=== PATIENT | male | born 1960 | race Caucasian/White ===

== ENCOUNTER → 2017-06-28 | Outpatient (CLI) | payer OTHER ==
--- NOTE | 2017-06-28 09:19 | Diagnostic Imaging Report ---
3 views of the right foot. INDICATION: Area of redness between the fourth and fifth toes on the dorsal aspect of the right foot. FINDINGS: There is no fracture, dislocation or radiopaque foreign body. The joint alignment is satisfactory. IMPRESSION: Unremarkable exam. Dictated by: Dictated on workstation # [id number]
== END ==
LOC: RAD 08:55
PROVIDERS: ATTEND Nurse Practitioner Family
DX: L03.115 Cellulitis of right lower limb (principal)
CPT/HCPCS: 73630

== ENCOUNTER 2017-07-21 08:00 | Outpatient (RCR) | payer OTHER | END 2017-07-21 09:44 | disposition home or self-care (01) | PROVIDERS: ATTEND Family Medicine | DX: M54.40 Lumbago with sciatica, unspecified side (principal) ==

== ENCOUNTER 2019-02-01 19:58 | Emergency (ER) | payer OTHER ==
[~2019-02-01] VITALS: Ht 177.8 cm; Wt 106.6 kg
--- NOTE | 2019-02-01 20:02 | NUR ---
PT PRESENTS WITH LEFT SIDED NUMBNESS FROM THE FACE DOWN TO HIS FOOT. SYMPTOMS STARTED YESTERDAY AROUND NOON AND SUBSIDED BUT SYMPTOMS RETURNED ABOUT 20 MIN SISTER SUPERIOR. STROKE TEAM ACTIVATED BY DR. MARIEE AT 2001.
--- OUTSIDE RECORDS SUMMARY | 2019-02-01 20:05 | XMS REPORT | Continuity of Care Document ---
Author Organization Unknown Address Unknown Allergies There is no data. Medications There is no data. Problems Date Dx Coded Attending Type Code Diagnosis Diagnosed By 05/20/2015 Ot 729.5 05/20/2015 Ot 729.81 05/20/2015 HAFSA RIDDLE MD Ot 719.41 05/20/2015 HAFSA RIDDLE MD Ot 726.10 06/18/2015 HAFSA RIDDLE MD R Ot M25.552 06/19/2015 HAFSA RIDDLE MD R Ot M25.552 06/06/2017 Ot 729.5 PAIN IN LIMB 06/06/2017 Ot 729.81 SWELLING OF LIMB 06/06/2017 HAFSA RIDDLE MD R Ot 719.41 JOINT PAIN-SHLDER 06/06/2017 HAFSA RIDDLE MD Ot 726.10 BURSAE TENDONS DIS SHLDER NOS 06/06/2017 HAFSA RIDDLE MD Ot M25.552 PAIN IN LEFT HIP 06/07/2017 HAFSA RIDDLE MD R Ot M54.40 LUMBAGO WITH SCIATICA, UNSPECIFIED SIDE 06/13/2017 HAFSA RIDDLE MD R Ot M54.40 LUMBAGO WITH SCIATICA, UNSPECIFIED SIDE 07/11/2017 HAFSA RIDDLE MD R Ot M54.40 LUMBAGO WITH SCIATICA, UNSPECIFIED SIDE 07/21/2017 HAFSA RIDDLE MD R Ot M54.40 LUMBAGO WITH SCIATICA, UNSPECIFIED SIDE 07/21/2017 BENJAMIN KUNZ KINDERGARTNER-C Ot L03.115 CELLULITIS OF RIGHT LOWER LIMB 04/10/2018 HAFSA RIDDLE MD R Ot 719.41 JOINT PAIN-SHLDER 04/10/2018 HAFSA RIDDLE MD R Ot 726.10 BURSAE TENDONS DIS SHLDER NOS 04/10/2018 HAFSA RIDDLE MD R Ot M25.552 PAIN IN LEFT HIP 04/10/2018 BENJAMIN KUNZ KINDERGARTNER-John Ot L03.115 CELLULITIS OF RIGHT LOWER LIMB Procedures There is no data. Results There is no data. Encounters ACCT No. Visit Date/Time Discharge Status Pt. Type Provider Facility Loc./Unit Complaint [id number] 07/21/2017 08:00:00 07/21/2017 09:44:00 DIS Outpatient HAFSA RIDDLE MD Via [facility] REHAB LOW BACK PAIN WITH SCIATICA [id number] 06/28/2017 08:55:00 06/28/2017 23:59:59 CLS Outpatient JOAQUINA BENJAMIN MILLER-John [facility] RAD L03.115 [id number] 05/20/2015 10:22:00 05/20/2015 23:59:59 CLS Outpatient HAFSA RIDDLE MD [facility] RAD IGCHITIS [id number] 03/06/2014 09:00:00 03/06/2014 23:59:59 CLS Outpatient [id number] 12/13/2013 13:13:00 12/13/2013 23:59:59 CLS Outpatient HAFSA RIDDLE MD [facility] RAD LT SHOULDER PAIN [id number] 03/27/2012 12:22:00 Document Registration
[2019-02-01 20:26] LABS: FIBRIN DEGRADATION PRODUCTS 0.55 UG/ML (0.00-0.49); INR 0.9 (0.8-1.4); PROTHROMBIN TIME PATIENT 12.6 SEC (12.2-14.7)
[2019-02-01 20:27] LABS: BASOPHILS % (AUTO) 0 % (0-10); EOSINOPHILS # (AUTO) 0.3 10^3/uL (0.0-0.3); EOSINOPHILS % (AUTO) 2 % (0-10); HEMATOCRIT 46 % (40-54); HEMOGLOBIN 15.6 G/DL (13.3-17.7); LYMPHOCYTES # (AUTO) 3.6 X 10^3 (1.0-4.0); LYMPHOCYTES % (AUTO) 32 % (12-44); MEAN CORPUSCULAR HEMOGLOBIN 27 PG (25-34); MEAN CORPUSCULAR HGB CONC 34 G/DL (32-36); MEAN CORPUSCULAR VOLUME 80 FL (80-99); MEAN PLATELET VOLUME 9.7 FL (7.4-10.4); MONOCYTES # (AUTO) 0.9 X 10^3 (0.0-1.0); MONOCYTES % (AUTO) 8 % (0-12); NEUTROPHILS # (AUTO) 6.3 X 10^3 (1.8-7.8); NEUTROPHILS % (AUTO) 57 % (42-75); PLATELET COUNT 314 10^3/uL (130-400); RED CELL DISTRIBUTION WIDTH 15.4 % (10.0-14.5); WHITE BLOOD COUNT 11.1 10^3/uL (4.3-11.0)
--- NOTE | 2019-02-01 20:34 | Diagnostic Imaging Report ---
PROCEDURE: CT head wo r/o stroke. TECHNIQUE: Multiple contiguous axial images were obtained through the brain without the use of intravenous contrast. Auto Exposure Controls were utilized during the CT exam to meet ALARA standards for radiation dose reduction. INDICATION: Complete left-sided paralysis yesterday, which resolved, and has now returned. COMPARISON: None FINDINGS: The ventricles and cortical sulci appear age-appropriate. There is no midline shift or significant mass effect. No acute intracranial hemorrhage is seen. There is no CT evidence of acute territorial ischemia. The calvarium appears intact. Visualized paranasal sinuses are clear. IMPRESSION: 1. No acute intracranial hemorrhage or CT evidence of acute territorial ischemia. Findings discussed with CASSIE MARIEE MD by Dr. Giles, on 02/01/2019 8:29 PM. Dictated by: Dictated on workstation # [id number]
[2019-02-01 20:40] LABS: ALANINE AMINOTRANSFERASE 17 U/L (0-55); ALBUMIN 4.2 GM/DL (3.2-4.5); ALKALINE PHOSPHATASE 97 U/L (40-136); BILIRUBIN,TOTAL 0.2 MG/DL (0.1-1.0); BUN/CREATININE RATIO 20; CALCIUM 9.5 MG/DL (8.5-10.1); CARBON DIOXIDE 21 MMOL/L (21-32); CHLORIDE 107 MMOL/L (98-107); CREATININE SERUM 1.01 MG/DL (0.60-1.30); GFR ESTIMATED > 60; GLUCOSE 114 MG/DL (70-105); POTASSIUM 4.1 MMOL/L (3.6-5.0); SODIUM 139 MMOL/L (135-145); TOTAL PROTEIN 7.1 GM/DL (6.4-8.2)
--- NOTE | 2019-02-01 20:55 | Diagnostic Imaging Report ---
PATIENT HISTORY: Left-sided paralysis and numbness. TECHNIQUE: Frontal view of the chest COMPARISON: None FINDINGS: Lung volumes are normal. No focal consolidation is seen. There is no pleural effusion or pneumothorax. The cardiac silhouette appears normal in size and contour. IMPRESSION: No acute pulmonary abnormalities seen. Dictated by: Dictated on workstation # [id number]
--- NOTE | 2019-02-01 20:58 | ED Neurological Problem ---
General Chief Complaint: Neurological Problems Stated Complaint: L SIDE NUMBNESS Nursing Triage Note: LEFT SIDED NUMBNESS STARTED YESTERDAY AROUND NOON AND COULD NOT CONTROL HIS LEFT ARM OR LEG. SYMPTOMS SUBSIDED AND THE NUMBNESS RETURNED TODAY Nursing Sepsis Screen: No Definite Risk Source: patient Exam Limitations: no limitations History of Present Illness Date Seen by Provider: Feb 01, 2019 Time Seen by Provider: 20:02 Initial Comments Mr. Diaz is a 58-year-old gentleman who presents to the emergency room with complaints of numbness extending from the left face down through the left extremities always down to the left foot. This occurred about 25 minutes prior to arrival but is now gone. He also reports having an episode of numbness and weakness of the left extremities yesterday. He reports having no control of his left arm or leg at that time. This was estimated to last approximately 2 minutes or less. He has had no weakness today. He is relatively healthy other than hyperlipidemia. He reports history of some slight right facial weakness as residual from a baseball injury. NIH stroke score on initial assessment is zero. Allergies and Home Medications Allergies Coded Allergies: No Known Drug Allergies (Unverified , 02/01/19) Patient Home Medication List Home Medication List Reviewed: Yes Review of Systems Review of Systems Constitutional: no symptoms reported Eyes: No Symptoms Reported Ears, Nose, Mouth, Throat: no symptoms reported Respiratory: no symptoms reported Cardiovascular: no symptoms reported Gastrointestinal: no symptoms reported Genitourinary: no symptoms reported Musculoskeletal: no symptoms reported Skin: no symptoms reported Psychiatric/Neurological: See HPI Endocrine: No Symptoms Reported Hematologic/Lymphatic: No Symptoms Reported Past Owvhnnn-Uuvyyc-Znqpfh Hx Past Med/Social Hx: Reviewed and Corrections made Patient Social History Alcohol Use: Denies Use Recreational Drug Use: No Smoking Status: Never a Smoker 2nd Hand Smoke Exposure: No Recent Foreign Travel: No Contact w/Someone Who Travel: No Recent Infectious Disease Expo: No Recent Hopitalizations: No Past Medical History Surgeries: No Respiratory: No Cardiac: Yes High Cholesterol Neurological: Yes (slight right facial weakness due to prior periorbital baseb all injury) Genitourinary: No Gastrointestinal: No Musculoskeletal: No Endocrine: No HEENT: Yes (slight right facial weakness due to prior periorbital baseball injury) Cancer: No Psychosocial: No Integumentary: No Blood Disorders: No Physical Exam Vital Signs Vital Signs - First Documented 02/01/19 19:58 Temp 97.8 Pulse 78 Resp 16 B/P (MAP) 150/108 (122) Pulse Ox 98 O2 Delivery Room Air Capillary Refill : Less Than 3 Seconds Height, Weight, BMI Height: 5'10.00" Weight: 235lbs. oz. 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, no motor/sensory deficits, alert, normal mood/affect, oriented x 3 Crainal Nerves: normal hearing, normal speech, PERRL Coordination/Gait: normal finger to nose (normal heel to jane) Motor/Sensory: no motor deficit, no sensory deficit Skin: normal color, warm/dry Stroke NIH Stroke Scale Assessment Select: Initial 20:02 Level of Consciousness: 0=Alert (0), Level of Consciousness-Questions: 0=Answers both month/age (0), LOC Commands: 0=Performs both tasks (0), Gaze: Normal (0), Visual Hutchins: 0=No visual loss (0), Facial Movement (Facial Paresis): 0=Normal symmetrical mnt (0), Motor Function-Arms Right: 0=No drift (0), Motor Function-Arms Left: 0=No drift (0), Motor Function-Legs Right: 0=No drift (0), Motor Function-Legs Left: 0=No drift (0), Limb Ataxia: 0=Absent (0), Sensory: 0=Normal:no loss (0), Best Language: 0=No aphasia (0), Dysarthria: 0=Normal (0), Extinction & Inattention: 0=No abnormality (0), Total: 0 Progress/Results/Core Measures Results/Orders Lab Results Laboratory Tests Test 02/01/19 20:00 02/01/19 20:37 02/01/19 22:05 Range/Units White Blood Count 11.1 H 4.3-11.0 10^3/uL Red Blood Count 5.83 4.35-5.85 10^6/uL Hemoglobin 15.6 13.3-17.7 G/DL Hematocrit 46 40-54 % Mean Corpuscular Volume 80 80-99 FL Mean Corpuscular Hemoglobin 27 25-34 PG Mean Corpuscular Hemoglobin Concent 34 32-36 G/DL Red Cell Distribution Width 15.4 H 10.0-14.5 % Platelet Count 314 130-400 10^3/uL Mean Platelet Volume 9.7 7.4-10.4 FL Neutrophils (%) (Auto) 57 42-75 % Lymphocytes (%) (Auto) 32 12-44 % Monocytes (%) (Auto) 8 0-12 % Eosinophils (%) (Auto) 2 0-10 % Basophils (%) (Auto) 0 0-10 % Neutrophils # (Auto) 6.3 1.8-7.8 X 10^3 Lymphocytes # (Auto) 3.6 1.0-4.0 X 10^3 Monocytes # (Auto) 0.9 0.0-1.0 X 10^3 Eosinophils # (Auto) 0.3 0.0-0.3 10^3/uL Basophils # (Auto) 0.0 0.0-0.1 10^3/uL Prothrombin Time 12.6 12.2-14.7 SEC INR Comment 0.9 0.8-1.4 Activated Partial Thromboplast Time 28 24-35 SEC D-Dimer 0.55 H 0.00-0.49 UG/ML Sodium Level 139 135-145 MMOL/L Potassium Level 4.1 3.6-5.0 MMOL/L Chloride Level 107 98-107 MMOL/L Carbon Dioxide Level 21 21-32 MMOL/L Anion Gap 11 5-14 MMOL/L Blood Urea Nitrogen 20 H 7-18 MG/DL Creatinine 1.01 0.60-1.30 MG/DL Estimat Glomerular Filtration Rate > 60 BUN/Creatinine Ratio 20 Glucose Level 114 H 70-105 MG/DL Calcium Level 9.5 8.5-10.1 MG/DL Corrected Calcium 9.3 8.5-10.1 MG/DL Total Bilirubin 0.2 0.1-1.0 MG/DL Aspartate Amino Transf (AST/SGOT) 21 5-34 U/L Alanine Aminotransferase (ALT/SGPT) 17 0-55 U/L Alkaline Phosphatase 97 40-136 U/L Troponin I < 0.028 <0.028 NG/ML Total Protein 7.1 6.4-8.2 GM/DL Albumin 4.2 3.2-4.5 GM/DL Glucometer 114 H 70-110 MG/DL Urine Color YELLOW Urine Clarity CLEAR Urine pH 5 5-9 Urine Specific [place] 1.025 H 1.016-1.022 Urine Protein 1+ H NEGATIVE Urine Glucose (UA) NEGATIVE NEGATIVE Urine Ketones NEGATIVE NEGATIVE Urine Nitrite NEGATIVE NEGATIVE Urine Bilirubin NEGATIVE NEGATIVE Urine Urobilinogen NORMAL NORMAL MG/DL Urine Leukocyte Esterase NEGATIVE NEGATIVE Urine RBC (Auto) NEGATIVE NEGATIVE Urine RBC NONE /HPF Urine WBC NONE /HPF Urine Crystals NONE /LPF Urine Bacteria NEGATIVE /HPF Urine Casts NONE /LPF Urine Mucus SMALL H /LPF Urine Culture Indicated NO My Orders Orders - CASSIE MARIEE MD Cbc With Automated Diff (02/01/19 20:12) Protime With Inr (02/01/19 20:12) Partial Thromboplastin Time (02/01/19 20:12) Comprehensive Metabolic Panel (02/01/19 20:12) Fibrin Degradation Products (02/01/19 20:12) Troponin I (02/01/19 20:12) Ua Culture If Indicated (02/01/19 20:12) Chest 1 View, Ap/Pa Only (02/01/19 20:12) Ekg Tracing (02/01/19 20:12) Accucheck Stat ONCE (02/01/19 20:12) Ed Iv/Invasive Line Start (02/01/19 20:12) Ed Iv/Invasive Line Start (02/01/19 20:12) Vital Signs Stroke Patient Q15M (02/01/19 20:12) Ct Head Wo-R/O Stroke (02/01/19 20:12) O2 (02/01/19 20:12) Intake & Output 06,14,22 (02/01/19 20:12) Monitor-Rhythm Ecg Trace Only (02/01/19 20:12) Dysphagia Screening Tool (02/01/19 20:12) Ct Angio Head/Neck (02/01/19 20:49) Iohexol Injection (Omnipaque 350 Mg/Ml 1 (02/01/19 21:15) Received Contrast (Hold Metformin- Contr (02/01/19 21:15) Aspirin Tablet (Aspirin Tablet) (02/01/19 22:45) Medications Given in ED Current Medications Medications Dose Ordered Sig/David Route Start Time Stop Time Status Last Admin Dose Admin Aspirin 325 mg ONCE ONCE PO 02/01/19 22:45 02/01/19 22:46 DC 02/01/19 22:28 325 MG Iohexol 75 ml ONCE ONCE IV 02/01/19 21:15 02/01/19 21:16 DC 02/01/19 21:09 75 ML Vital Signs/I&O 02/01/19 02/01/19 02/01/19 19:58 21:55 23:00 Temp 97.8 Pulse 78 67 70 Resp 16 16 16 B/P (MAP) 150/108 (122) 118/85 122/75 (91) Pulse Ox 98 95 97 O2 Delivery Room Air Blood Pressure Mean: 122 FSBG Bedside Testing Finger Stick Blood Glucose: 114 Progress Progress Note : Progress Note Stroke activation was paged. Workup was unremarkable. Case was discussed with Dr. Trujillo, stroke neurologist at [facility] at 22:26. He advised further workup as an outpatient and aspirin therapy. He advised outpatient workup to include echocardiogram and diabetes screening. Patient had one brief episode of numbness of the left face and tongue that lasted approximately 2 minutes or less. He was free of symptoms at the time of discharge. A repeat NIH score prior to discharge was zero. Return precautions were discussed. Initial ECG Impression Date: Feb 01, 2019 Initial ECG Impression Time: 20:11 Initial ECG Rate: 71 Initial ECG Rhythm: Normal Sinus Initial ECG Intervals: Normal Initial ECG Impression: Normal Comment Normal sinus rhythm with no ST elevation or depression. No abnormal intervals or axis deviation. Diagnostic Imaging Diagonstic Imaging: CT Plain Films/CT/US/NM/MRI: head Comments CT head viewed by me and report reviewed. Discussed with radiologist. See report below: NAME: YADY IDAZ [facility] REC#: [id number] PT STATUS: REG ER : 1960 PHYSICIAN: CASSIE MARIEE MD ADMIT DATE: 02/01/19/ER Draft Date of Exam:02/01/19 CT HEAD WO-R/O STROKE PROCEDURE: CT head wo r/o stroke. TECHNIQUE: Multiple contiguous axial images were obtained through the brain without the use of intravenous contrast. Auto Exposure Controls were utilized during the CT exam to meet ALARA standards for radiation dose reduction. INDICATION: Complete left-sided paralysis yesterday, which resolved, and has now returned. COMPARISON: None FINDINGS: The ventricles and cortical sulci appear age-appropriate. There is no midline shift or significant mass effect. No acute intracranial hemorrhage is seen. There is no CT evidence of acute territorial ischemia. The calvarium appears intact. Visualized paranasal sinuses are clear. IMPRESSION: 1. No acute intracranial hemorrhage or CT evidence of acute territorial ischemia. Findings discussed with CASSIE MARIEE MD by Dr. Mcnulty, on 02/01/2019 8:29 PM. Dictated on workstation # [id number] Dict: 02/01/192025 Trans: 02/01/192033 NAVDEEP [id number] Interpreted by: MARIEL MCNULTY MD Reviewed: Reviewed by Me, Discussed w/Radiologist Diagonstic Imaging: Xray Plain Films/CT/US/NM/MRI: chest Comments NAME: YADY DIAZ MED REC#: [id number] PT STATUS: REG ER : 1960 PHYSICIAN: CASSIE MARIEE MD ADMIT DATE: 02/01/19/ER Draft Date of Exam:02/01/19 CHEST 1 VIEW, AP/PA ONLY PATIENT HISTORY: Left-sided paralysis and numbness. TECHNIQUE: Frontal view of the chest COMPARISON: None FINDINGS: Lung volumes are normal. No focal consolidation is seen. There is no pleural effusion or pneumothorax. The cardiac silhouette appears normal in size and contour. IMPRESSION: No acute pulmonary abnormalities seen. Dictated on workstation # [id number] Dict: 02/01/192043 Trans: 02/01/192053 NAVDEEP [id number] Interpreted by: MARIEL MCNULTY MD Diagonstic Imaging: CT Plain Films/CT/US/NM/MRI: other (angiogram head and neck) Comments NAME: YADY DIAZ [facility] REC#: [id number] PT STATUS: REG ER : 1960 PHYSICIAN: CASSIE MARIEE MD ADMIT DATE: 02/01/19/ER Signed Date of Exam: 02/01/19 CT ANGIO HEAD/NECK PROCEDURE: CT angiography of the head and CT angiography of the neck with and without contrast. TECHNIQUE: Contiguous noncontrast images were obtained from the skull base through the vertex. After intravenous contrast administration, helical CT angiography of the neck was performed. Source data was reformatted into multiple MIP projections. Delayed post contrast acquisition was also obtained. Auto Exposure Controls were utilized during the CT exam to meet ALARA standards for radiation dose reduction. INDICATION: Stroke, left-sided paralysis which resolved yesterday. Left-sided numbness today. COMPARISON: None. FINDINGS: There is motion artifact present. The bolus timing is suboptimal. No stenosis or occlusion is seen of the bilateral internal and common carotid arteries. Minimal atherosclerosis is seen. The vertebral arteries are codominant. No significant stenosis or occlusion is seen. The anterior cerebral arteries appear patent. The anterior communicating artery is seen. The middle cerebral arteries are patent. The posterior communicating arteries are not well seen. The posterior cerebral arteries are seen. The superior cerebellar arteries are faintly visible. The basilar artery appears normal. No acute intracranial hemorrhage is seen. No enhancing masses are seen. Enhancement appears symmetric, bilaterally. There is no midline shift. No CT evidence of acute territorial ischemia is seen. There are degenerative changes in the cervical spine, most pronounced at C6-7. No acute fracture is seen. There is facet arthropathy in the cervical spine, particularly on the right. The soft tissues of the neck demonstrate no acute abnormality. IMPRESSION: 1. No stenosis, occlusion or aneurysm is seen in the arteries of the head and neck. 2. No enhancing masses or CT evidence of acute territorial ischemia. Dictated by: Dictated on workstation # [id number] Dict: 02/01/192129 Trans: 02/01/192208 Interpreted by: MARIEL MCNULTY MD Electronically signed by: MARIEL MCNULTY MD 02/01/192208 Departure Impression Primary Impression: Left-sided weakness Additional Impression: Left sided numbness Disposition: 01 HOME, SELF-CARE Condition: Improved Departure-Patient Inst. Decision time for Depature: 22:40 Referrals: HAFSA RIDDLE MD (PCP/Family) Primary Care Physician Patient Instructions: Transient Ischemic Attack (DC) Add. Discharge Instructions: The exact cause of your symptoms is uncertain but may be related to TIA (transient ischemic attack). Please immediately return to the emergency room or call 911 if you have recurrent strokelike symptoms which might include numbness, weakness, changes in vision, difficulty with speech or thought, confusion, etc. Take aspirin 81 mg daily until otherwise advised. Drink plenty of clear liquids and stay well-hydrated. Follow-up with your primary care provider soon as possible. Dr. Trujillo, stroke neurologist at , has recommended you continue evaluation with your primary care provider to include echocardiogram, diabetes screening, and possibly more aggressive treatment of your cholesterol. Return to care if you have any other problems or concerns. All discharge instructions reviewed with patient and/or family. Voiced understanding. Copy Copies To 1: HAFSA RIDDLE MD, JOSHUA T MD Feb 01, 2019 20:58
[2019-02-01] MEDS ORDERED: IOHEXOL 350 MG/ML 100 ML (OMNIPAQUE 350) VIAL IV ONE (21:15)
[2019-02-01] MEDS ORDERED: HOLD METFORMIN - RECEIVED CONTRAST 20 ML VIAL IV SCH (21:15)
--- NOTE | 2019-02-01 21:39 | Diagnostic Imaging Report ---
PROCEDURE: CT angiography of the head and CT angiography of the neck with and without contrast. TECHNIQUE: Contiguous noncontrast images were obtained from the skull base through the vertex. After intravenous contrast administration, helical CT angiography of the neck was performed. Source data was reformatted into multiple MIP projections. Delayed post contrast acquisition was also obtained. Auto Exposure Controls were utilized during the CT exam to meet ALARA standards for radiation dose reduction. INDICATION: Stroke, left-sided paralysis which resolved yesterday. Left-sided numbness today. COMPARISON: None. FINDINGS: There is motion artifact present. The bolus timing is suboptimal. No stenosis or occlusion is seen of the bilateral internal and common carotid arteries. Minimal atherosclerosis is seen. The vertebral arteries are codominant. No significant stenosis or occlusion is seen. The anterior cerebral arteries appear patent. The anterior communicating artery is seen. The middle cerebral arteries are patent. The posterior communicating arteries are not well seen. The posterior cerebral arteries are seen. The superior cerebellar arteries are faintly visible. The basilar artery appears normal. No acute intracranial hemorrhage is seen. No enhancing masses are seen. Enhancement appears symmetric, bilaterally. There is no midline shift. No CT evidence of acute territorial ischemia is seen. There are degenerative changes in the cervical spine, most pronounced at C6-7. No acute fracture is seen. There is facet arthropathy in the cervical spine, particularly on the right. The soft tissues of the neck demonstrate no acute abnormality. IMPRESSION: 1. No stenosis, occlusion or aneurysm is seen in the arteries of the head and neck. 2. No enhancing masses or CT evidence of acute territorial ischemia. Dictated by: Dictated on workstation # [id number]
[2019-02-01 21:55] VITALS: BP 118/85
[2019-02-01 22:15] LABS: BILIRUBIN,URINE NEGATIVE (NEGATIVE); CLARITY,URINE CLEAR; COLOR,URINE YELLOW; GLUCOSE, URINE (UA) NEGATIVE (NEGATIVE); KETONES,URINE NEGATIVE (NEGATIVE); LEUKOCYTE ESTERASE ,URINE NEGATIVE (NEGATIVE); NITRITE,URINE NEGATIVE (NEGATIVE); PH,URINE 5 (5-9); PROTEIN,URINE 1+ (NEGATIVE); UROBILINOGEN,URINE NORMAL (NORMAL)
[2019-02-01 22:20] LABS: BACTERIA,URINE NEGATIVE /HPF
[2019-02-01] MEDS ORDERED: ASPIRIN 325 MG (5 GR) TABLET PO ONE (22:45)
[2019-02-01 23:00] VITALS: BP 122/75
== END 2019-02-01 23:00 | disposition home or self-care (01) ==
LOC: EDUNIT# 19:58 → ER 19:59
DX: R20.0 Anesthesia of skin (principal); R53.1 Weakness; E78.00 Pure hypercholesterolemia, unspecified
CPT/HCPCS: 36415; 70450; 70496; 70498; 71045; 80053; 81000; 82962; 84484; 85025; 85379; 85610; 85730; 93005; 93041

== ENCOUNTER 2019-03-16 08:00 | Outpatient (RCR) | payer OTHER | END 2019-06-04 | disposition home or self-care (01) | PROVIDERS: ATTEND Family Medicine | DX: M54.5 Low back pain (principal); M54.2 Cervicalgia; Z86.73 Personal history of transient ischemic attack (TIA), and cerebral infarction without residual deficits ==

== ENCOUNTER 2021-01-23 07:43 | Emergency (ER) | payer OTHER ==
[~2021-01-23] VITALS: Ht 177 cm; Wt 100.0 kg
[2021-01-23 07:50] VITALS: BP 146/91
--- NOTE | 2021-01-23 08:45 | Diagnostic Imaging Report ---
INDICATION: Wrist pain COMPARISON: None available TECHNIQUE: 3 radiographs of the left wrist dated 01/23/2021 FINDINGS: No acute fracture or dislocation. No destructive osseous process. Carpal alignment is well-maintained. Scapholunate interval is within normal limits. Scattered osseous degenerative changes, greatest involving the 1st CMC joint where they are [id number] in . Mild soft tissue swelling about the wrist. IMPRESSION: No acute osseous abnormality with mild scattered osseous degenerative changes. Mild soft tissue swelling about the wrist. Dictated by: Dictated on workstation # [id number]
--- NOTE | 2021-01-23 09:15 | ED Upper Extremity ---
General Chief Complaint: Upper Extremity Stated Complaint: LEFT WRIST PAIN Nursing Triage Note: PT AMB TO ROOM 8 PT CO OF L WRIST PAIN FROM FALL LAST TUESDAY, PT CO OF PAIN. PT STATES IS DIABETIC AND HAS NOT HAD ANY MEDS FOR 2 YEARS. PT STATES HAS RECENT RENTINAL BLEEDING AND IS CONCERNED THAT MIGHT BE FROM ELEVATED BS Nursing Sepsis Screen: No Definite Risk Source: patient Exam Limitations: no limitations History of Present Illness Date Seen by Provider: Jan 23, 2021 Time Seen by Provider: 08:10 Initial Comments This 60-year-old gentleman presents to the emergency room with 3 complaints. His primary complaint is pain in the left wrist after falling and rolling down a hill on January 17. He has pain with range of motion and tenderness on the ulnar aspect of the wrist. His second complaint is diabetes for which he has not had primary care management in quite some time. He is concerned his blood sugar may be high. He also reports retinal hemorrhages that he thinks may be related to uncontrolled diabetes. Fingerstick blood sugar was obtained and was 115. His third complaint is need for primary care services and maintenance blood work. This is being deferred to primary care provider. Allergies and Home Medications Allergies Coded Allergies: No Known Drug Allergies (Unverified , 02/01/19) Patient Home Medication List Home Medication List Reviewed: Yes Review of Systems Constitutional: no symptoms reported EENTM: see HPI Respiratory: no symptoms reported Cardiovascular: no symptoms reported Gastrointestinal: no symptoms reported Genitourinary: no symptoms reported Musculoskeletal: see HPI Skin: no symptoms reported Psychiatric/Neurological: No Symptoms Reported Past Acglsfk-Rhlzhh-Ichpja Hx Past Med/Social Hx: Reviewed Nursing Past Med/Soc Hx Patient Social History Alcohol Use: Denies Use Smoking Status: Never a Smoker 2nd Hand Smoke Exposure: No Recent Infectious Disease Expo: No Recent Hopitalizations: No Past Medical History Surgeries: No Respiratory: No Cardiac: Yes High Cholesterol Neurological: Yes (slight right facial weakness due to prior periorbital baseball injury) Genitourinary: No Gastrointestinal: No Musculoskeletal: No Endocrine: Yes Diabetes, Non-Insulin dep HEENT: Yes (slight right facial weakness due to prior periorbital baseball injury) Eye Injury (Retinal hemorrhage) Cancer: No Psychosocial: No Integumentary: No Blood Disorders: No Physical Exam Vital Signs Vital Signs - First Documented 01/23/21 07:50 Temp 35.8 Pulse 74 Resp 18 B/P (MAP) 146/91 (109) Pulse Ox 96 Capillary Refill : Less Than 3 Seconds Height, Weight, BMI Height: 5'10.00" Weight: 235lbs. oz. 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 Patient was fitted with an AlumaFm Colles' splint which provided him significant comfort. Diagnostic Imaging Diagonstic Imaging: Xray Plain Films/CT/US/NM/MRI: other (Wrist x-ray) Comments Left wrist x-ray viewed by me and report reviewed. Report and images reviewed with Dr. Zaidi. See report below: NAME: YADY DIAZ [facility] REC#: [id number] PT STATUS: DEP ER : 1960 PHYSICIAN: CASSIE MARIEE MD ADMIT DATE: 01/23/21/ER Signed Date of Exam:01/23/21 WRIST, LEFT, 3 VIEWS OR MORE INDICATION: Wrist pain COMPARISON: None available TECHNIQUE: 3 radiographs of the left wrist dated 01/23/2021 FINDINGS: No acute fracture or dislocation. No destructive osseous process. Carpal alignment is well-maintained. Scapholunate interval is within normal limits. Scattered osseous degenerative changes, greatest involving the 1st CMC joint where they are [id number] in . Mild soft tissue swelling about the wrist. IMPRESSION: No acute osseous abnormality with mild scattered osseous degenerative changes. Mild soft tissue swelling about the wrist. Dictated by: Dictated on workstation # [id number] Dict: 01/23/2139 Trans: 01/23/211652 [facility] [id number] Interpreted by: DEEPTI ARROYO MD Electronically signed by: DEEPTI ARROYO MD 01/23/211652 Departure Impression Primary Impression: Left wrist injury Qualified Codes: S69.92XA - Unspecified injury of left wrist, hand and finger(s), initial encounter Disposition: HOME, SELF-CARE Condition: Improved Departure-Patient Inst. Decision time for Depature: 09:14 Referrals: HUGO ALVAREZ MD [facility]/NATI OROZCO MD, DANIEL J MD NO,LOCAL PHYSICIAN (PCP) Primary Care Physician IVÁN FLOWER CHAD C MD Patient Instructions: Common Wrist Injuries (DC) Add. Discharge Instructions: No fractures were seen on your x-ray. You may have a deep bruise or a sprain. Use your splint as needed for comfort. Gradually increase level of activity as tolerated. For pain you may take ibuprofen up to 600 mg every 6 hours as needed and/or Tylenol (acetaminophen) up to 1000 mg every 6 hours as needed. Establish with a primary care provider as soon as possible to manage your preventative care and any chronic conditions you have. Below is a list of local providers. Call with questions or concerns. Return to the ER with worsening symptoms. All discharge instructions reviewed with patient and/or family. Voiced understanding. Work/School Note: Work Release Form Date Seen in the Emergency Department: Jan 23, 2021 Return to Work: Jan 26, 2021 Other Restrictions Listed Below: May need left wrist splint. Increase activity as pain allows. CASSIE MARIEE MD Jan 23, 2021 09:15
== END 2021-01-23 09:28 | disposition home or self-care (01) ==
LOC: EDUNIT# 07:43 → ER 07:48
DX: S69.92XA Unspecified injury of left wrist, hand and finger(s), initial encounter (principal); E11.9 Type 2 diabetes mellitus without complications; X50.0XXA Overexertion from strenuous movement or load, initial encounter
CPT/HCPCS: 73110; 82947

== ENCOUNTER → 2021-02-10 | Outpatient (CLI) | payer OTHER ==
[2021-02-10 07:37] LABS: HEMATOCRIT 49 % (40-54); HEMOGLOBIN 15.7 g/dL (13.3-17.7); MEAN CORPUSCULAR HEMOGLOBIN 26 pg (25-34); MEAN CORPUSCULAR HGB CONC 32 g/dL (32-36); MEAN CORPUSCULAR VOLUME 81 fL (80-99); MEAN PLATELET VOLUME 9.2 fL (9.0-12.2); PLATELET COUNT 326 10^3/uL (130-400); WHITE BLOOD COUNT 10.5 10^3/uL (4.3-11.0)
[2021-02-10 07:50] LABS: ALBUMIN 4.2 GM/DL (3.2-4.5); CHLORIDE 108 MMOL/L (98-107); POTASSIUM 4.1 MMOL/L (3.6-5.0); SODIUM 140 MMOL/L (135-145)
[2021-02-10 07:52] LABS: CALCIUM 9.4 MG/DL (8.5-10.1)
[2021-02-10 07:53] LABS: GLUCOSE 125 MG/DL (70-105); TOTAL PROTEIN 7.2 GM/DL (6.4-8.2)
[2021-02-10 07:54] LABS: CARBON DIOXIDE 21 MMOL/L (21-32)
[2021-02-10 07:55] LABS: BILIRUBIN,TOTAL 0.6 MG/DL (0.1-1.0)
[2021-02-10 07:56] LABS: ALKALINE PHOSPHATASE 94 U/L (40-136)
[2021-02-10 07:57] LABS: CREATININE SERUM 0.97 MG/DL (0.60-1.30); GFR ESTIMATED > 60
[2021-02-10 07:58] LABS: BUN/CREATININE RATIO 18
[2021-02-10 07:59] LABS: ALANINE AMINOTRANSFERASE 13 U/L (0-55)
[2021-02-10 08:27] LABS: ERYTHROCYTE SEDIMENTATION RATE 5 MM/HR (0-30)
== END ==
LOC: LAB 07:16
PROVIDERS: ATTEND Family Medicine
DX: Z01.89 Encounter for other specified special examinations (principal)
CPT/HCPCS: 36415; 80053; 85027; 85652; 86038; 86039; 86141; 86431

== ENCOUNTER → 2021-02-18 | Outpatient (CLI) | payer OTHER | LOC: LAB 09:24 | PROVIDERS: ATTEND Family Medicine | DX: E11.9 Type 2 diabetes mellitus without complications (principal) | CPT/HCPCS: 36415; 83036 ==

== ENCOUNTER → 2021-05-04 | Outpatient (CLI) | payer OTHER ==
[2021-05-04 08:21] LABS: BASOPHILS % (AUTO) 1 % (0-10); EOSINOPHILS # (AUTO) 0.2 10^3/uL (0.0-0.3); EOSINOPHILS % (AUTO) 2 % (0-10); HEMATOCRIT 48 % (40-54); HEMOGLOBIN 15.5 g/dL (13.3-17.7); LYMPHOCYTES # (AUTO) 2.2 10^3/uL (1.0-4.0); LYMPHOCYTES % (AUTO) 25 % (12-44); MEAN CORPUSCULAR HEMOGLOBIN 27 pg (25-34); MEAN CORPUSCULAR HGB CONC 33 g/dL (32-36); MEAN CORPUSCULAR VOLUME 82 fL (80-99); MEAN PLATELET VOLUME 9.6 fL (9.0-12.2); MONOCYTES # (AUTO) 0.7 10^3/uL (0.0-1.0); MONOCYTES % (AUTO) 8 % (0-12); NEUTROPHILS # (AUTO) 5.6 10^3/uL (1.8-7.8); NEUTROPHILS % (AUTO) 64 % (42-75); PLATELET COUNT 270 10^3/uL (130-400); WHITE BLOOD COUNT 8.8 10^3/uL (4.3-11.0)
[2021-05-04 08:52] LABS: CREATININE SERUM 0.91 MG/DL (0.60-1.30)
[2021-05-04 08:53] LABS: ERYTHROCYTE SEDIMENTATION RATE 3 MM/HR (0-30)
== END ==
LOC: LAB 07:45
PROVIDERS: ATTEND Internal Medicine Rheumatology
DX: M06.4 Inflammatory polyarthropathy (principal)
CPT/HCPCS: 36415; 82565; 85025; 85652; 86038; 86039; 86141; 86160; 86200; 86225; 86235; 86431

== ENCOUNTER → 2021-07-06 | Outpatient (CLI) | payer OTHER | LOC: LAB 14:55 | PROVIDERS: ATTEND Internal Medicine Rheumatology | DX: M06.4 Inflammatory polyarthropathy (principal); Z79.52 Long term (current) use of systemic steroids | CPT/HCPCS: 36415; 85652; 86141 ==

== ENCOUNTER → 2021-09-04 | Outpatient (CLI) | payer OTHER | LOC: LAB 08:39 | PROVIDERS: ATTEND Internal Medicine Rheumatology | DX: M06.4 Inflammatory polyarthropathy (principal); Z79.52 Long term (current) use of systemic steroids | CPT/HCPCS: 36415; 85652; 86141 ==

== ENCOUNTER → 2021-12-08 | Outpatient (CLI) | payer OTHER | LOC: LAB 07:19 | PROVIDERS: ATTEND Family Medicine | DX: R97.20 Elevated prostate specific antigen [PSA] (principal) | CPT/HCPCS: 36415; 84153 ==

== ENCOUNTER → 2021-12-08 | Outpatient (CLI) | payer OTHER | LOC: LAB 07:21 | PROVIDERS: ATTEND Internal Medicine Rheumatology | DX: M06.4 Inflammatory polyarthropathy (principal); Z79.52 Long term (current) use of systemic steroids | CPT/HCPCS: 36415; 85652; 86141 ==

== ENCOUNTER → 2022-03-05 | Outpatient (CLI) | payer OTHER | LOC: LAB 07:31 | PROVIDERS: ATTEND Internal Medicine Rheumatology | DX: M06.4 Inflammatory polyarthropathy (principal) | CPT/HCPCS: 36415; 85652; 86141 ==

== ENCOUNTER → 2022-09-29 | Outpatient (CLI) | payer OTHER ==
--- NOTE | 2022-09-29 09:48 | Diagnostic Imaging Report ---
INDICATION: Elbow popped yesterday. Unable to straighten. Pain. EXAMINATION: Right elbow 09/29/2022. FINDINGS: 3 views of the elbow. There is a large loose body posterior elbow along the olecranon fossa. This measures 2.6 cm in greatest dimension with adjacent smaller loose body suspected. Diffuse degenerative changes with spurring seen within the proximal ulna and radius. There are no acute fractures or dislocations. There is no significant joint effusion. IMPRESSION: 1. Loose bodies within the olecranon fossa. Other osteoarthritic changes as above with no acute osseous abnormality. Dictated by: Dictated on workstation # [id number]
== END ==
LOC: RAD 09:30
PROVIDERS: ATTEND Family Medicine
DX: M19.041 Primary osteoarthritis, right hand (principal)
CPT/HCPCS: 73080

== ENCOUNTER → 2023-06-06 | Outpatient (CLI) | payer OTHER ==
[~2023-06-06] MED LIST: CATHETER FLUSH 10 ML SYR IVP PRN; REGADENOSON 0.4 MG/5 ML SYR IV ONE
[2023-06-06 09:30] VITALS: BP 130/77
--- NOTE | 2023-06-06 16:29 | Cardiology Stress Test Report ---
Stress Test Report Date of Procedure/Referring: Date of Procedure: Jun 06, 2023 PCP Levar Olivo DO Admitting Physician Admitting Physician: Attending Physician: Aubrey Rai MD Baseline Heart Rate: 59 Baseline Blood Pressure: Blood Pressure Systolic: 130 Blood Pressure Diastolic: 77 Baseline Vitals Vital Signs Date Time Temp Pulse Resp B/P (MAP) Pulse Ox O2 Delivery O2 Flow Rate FiO2 06/06/23 09:30 59 130/77 (94) Baseline EKG: Baseline EKG: NSR Summary After explaining the procedure to the patient, he signed a consent and then brought to the stress nuclear laboratory. Patient received 0.4 mg Lexiscan for stress test, ECG, heart rate and blood pressure were monitored continuously. Resting and stress dose of radio tracer were injected, imaging was acquired and reviewed in short axis, horizontal long axis and vertical long axis views. TID: 1.04 SSS: 1 SDS: 1 EF: 53 Patient tolerated Lexiscan well Patchy uptake with poor quality SPECT images, overall no significant ischemia or infarction noted Normal left ventricular size, ejection fraction 53% Copy Copies To 1: LEVAR OLIVO BASHAR J MD Jun 06, 2023 16:29
== END ==
LOC: CARD 08:45
PROVIDERS: ATTEND Internal Medicine Cardiovascular Disease
DX: I25.10 Atherosclerotic heart disease of native coronary artery without angina pectoris (principal); I10 Essential (primary) hypertension
CPT/HCPCS: 78452; 93017; A9502

== ENCOUNTER 2023-06-21 07:34 | Observation (INO) | payer OTHER ==
[~2023-06-21] VITALS: Ht 177.8 cm; Wt 93.3 kg
--- NOTE | 2023-06-21 08:06 | ED General ---
General Chief Complaint: Lower Extremity Stated Complaint: LEG PAIN Nursing Triage Note: PT STATES HE WAS SENT OVER BY DR RAI FOR DECREASED BLOOD FLOW TO HIS RIGHT LEG. STATES DONTE IS TO CALL AT 8AM. STATES HE HAS HAD THIS PROBLEM FOR 8 MONTHS BUT IS HAVING TROUBLE WALKING WHICH IS WHAT BROUGHT HIM INTODAY. Source of Information: Patient, Old Records Exam Limitations: No Limitations History of Present Illness Date Seen by Provider: Jun 21, 2023 Time Seen by Provider: 07:52 Initial Comments This is 63-year-old gentleman presents to the emergency room with exacerbation of right lower extremity claudication and cramping with exertion. He has a known femoral stenosis by ultrasound and YAKELIN testing. Ultrasound was obtained May 09. Stenting was determined necessary but has been delayed due to insurance denial. Patient has been having symptoms for 8 months but reports a severe worsening this morning. He was directed to the emergency room by the cardiology office. He is noted to be anxious and hypertensive during my assessment. He is also noted to have irregular heart rhythm during assessment. He is presently taking Plavix and aspirin. Allergies and Home Medications Allergies Coded Allergies: No Known Drug Allergies (Unverified , 02/01/19) Patient Home Medication List Home Medication List Reviewed: Yes Aspirin (Aspirin EC) 81 Mg Tablet.dr, 81 MG PO DAILY Prescribed by: ABI RAI on 06/23/23832 Atorvastatin Calcium (Atorvastatin Calcium) 20 Mg Tablet, 20 MG PO DAILY, (Reported) Entered as Reported by: FERMIN SIMMS on 06/21/231446 Last Action: Reviewed Clopidogrel Bisulfate (Clopidogrel) 75 Mg Tablet, 75 MG PO DAILY, (Reported) Entered as Reported by: FERMIN SIMMS on 06/21/231446 Last Action: Reviewed Losartan Potassium (Losartan Potassium) 25 Mg Tablet, 25 MG PO DAILY Prescribed by: ABI RAI on 06/23/23832 Rivaroxaban (Xarelto Tablet) 2.5 Mg Tablet, 2.5 MG PO BID Prescribed by: ABI RAI on 06/23/23832 Review of Systems Review of Systems Constitutional: no symptoms reported EENTM: no symptoms reported Respiratory: no symptoms reported Cardiovascular: see HPI Gastrointestinal: no symptoms reported Genitourinary: no symptoms reported Musculoskeletal: no symptoms reported Skin: no symptoms reported Psychiatric/Neurological: No Symptoms Reported Hematologic/Lymphatic: No Symptoms Reported Immunological/Allergic: no symptoms reported Past Ikorane-Tsakpe-Znunkz Hx Patient Social History Tobacco Use?: No Substance use?: No Alcohol Use?: Yes Alcohol Frequency: Once in a while Past Medical History Surgeries: Yes Orthopedic Respiratory: No Cardiac: Yes High Cholesterol, Peripheral Vascular Neurological: Yes (slight right facial weakness due to prior periorbital baseball injury) Genitourinary: No Gastrointestinal: No Musculoskeletal: No Endocrine: Yes Diabetes, Non-Insulin dep HEENT: Yes (slight right facial weakness due to prior periorbital baseball injury) Eye Injury Cancer: No Psychosocial: No Integumentary: No Blood Disorders: No Physical Exam Vital Signs Vital Signs - First Documented 06/21/23 07:45 Temp 36.6 Pulse 86 Resp 16 B/P (MAP) 209/102 (137) Pulse Ox 97 O2 Delivery Room Air Capillary Refill : Less Than 3 Seconds Height, Weight, BMI Height: 5'10.00" Weight: 235lbs. oz. 106.813311za; 31.00 BMI Method:Stated General Appearance: No Apparent Distress, WD/WN HEENT: Normal ENT Inspection Neck: Normal Inspection Respiratory: Lungs Clear, Normal Breath Sounds, No Accessory Muscle Use Cardiovascular: Regular Rate, Rhythm, No Edema, No Murmur, Other (Absence of palpable pulses in the right foot. Sensation, movement of the toes, and capillary refill of less than 5 seconds intact.) Extremity: Normal Inspection, Other (As above) Neurologic/Psychiatric: Alert, Oriented x3, No Motor/Sensory Deficits, Normal Mood/Affect Skin: Normal Color, Warm/Dry Progress/Results/Core Measures Suspected Sepsis SIRS Temperature: Pulse: 86 Respiratory Rate: 16 Laboratory Tests 06/21/23 08:20: White Blood Count 10.7 Blood Pressure 209 /102 Mean: 137 Laboratory Tests 06/21/23 08:20: Creatinine 0.96, Platelet Count 337 Results/Orders Lab Results Laboratory Tests Test 06/21/23 08:20 Range/Units White Blood Count 10.7 4.3-11.0 10^3/uL Red Blood Count 5.91 H 4.30-5.52 10^6/uL Hemoglobin 16.2 13.3-17.7 g/dL Hematocrit 49 40-54 % Mean Corpuscular Volume 83 80-99 fL Mean Corpuscular Hemoglobin 27 25-34 pg Mean Corpuscular Hemoglobin Concent 33 32-36 g/dL Red Cell Distribution Width 14.7 H 10.0-14.5 % Platelet Count 337 130-400 10^3/uL Mean Platelet Volume 9.6 9.0-12.2 fL Immature Granulocyte % (Auto) 0 % Neutrophils (%) (Auto) 63 42-75 % Lymphocytes (%) (Auto) 25 12-44 % Monocytes (%) (Auto) 10 0-12 % Eosinophils (%) (Auto) 1 0-10 % Basophils (%) (Auto) 0 0-10 % Neutrophils # (Auto) 6.7 1.8-7.8 10^3/uL Lymphocytes # (Auto) 2.7 1.0-4.0 10^3/uL Monocytes # (Auto) 1.1 H 0.0-1.0 10^3/uL Eosinophils # (Auto) 0.1 0.0-0.3 10^3/uL Basophils # (Auto) 0.0 0.0-0.1 10^3/uL Immature Granulocyte # (Auto) 0.0 0.0-0.1 10^3/uL Sodium Level 139 135-145 MMOL/L Potassium Level 3.5 L 3.6-5.0 MMOL/L Chloride Level 105 98-107 MMOL/L Carbon Dioxide Level 24 21-32 MMOL/L Anion Gap 10 5-14 MMOL/L Blood Urea Nitrogen 14 7-18 MG/DL Creatinine 0.96 0.60-1.30 MG/DL Estimat Glomerular Filtration Rate 89 BUN/Creatinine Ratio 15 Glucose Level 118 H 70-105 MG/DL Calcium Level 9.1 8.5-10.1 MG/DL Magnesium Level 2.0 1.6-2.4 MG/DL My Orders Orders - CASSIE MARIEE MD Ekg Tracing (06/21/23 08:05) Monitor-Rhythm Ecg Trace Only (06/21/23 08:05) Us Right Low Ext [id number] (06/21/23 08:08) Us Venous Lower Ext Rt (06/21/23 08:08) Ed Iv/Invasive Line Start (06/21/23 08:10) Ekg Tracing (06/21/23 08:10) Basic Metabolic Panel (06/21/23 08:11) Cbc And Automated Diff (06/21/23 08:11) Magnesium (06/21/23 08:11) Thyroid Stimulating Hormone (06/21/23 08:11) Free T4 (Free Thyroxine) (06/21/23 08:11) Aspirin Chewable Tablet (Aspirin Chewabl (06/21/23 09:00) Enoxaparin Injection (Enoxaparin Injecti (06/21/23 09:00) Vital Signs/I&O 06/21/23 07:45 Temp 36.6 Pulse 86 Resp 16 B/P (MAP) 209/102 (137) Pulse Ox 97 O2 Delivery Room Air Capillary Refill : Less Than 3 Seconds Blood Pressure Mean: 137 Progress Note : Time: 08:57 Progress Note Patient was interviewed and examined. Chart was reviewed including prior ultrasound reports. EKGs were obtained to evaluate irregular rhythm. He appears to be having frequent preventricular complexes. Labs were obtained and reviewed by me. By my interpretation there are no significant abnormalities. CBC was unremarkable. Potassium was scantly low at 3.5. Glucose was scantly elevated at 118. Thyroid studies are pending at this time. Dr. Rai, mobile sales expert, was contacted and presented to the emergency room. He observed ultrasound being obtained. Patient has a critical limb ischemia with no palpable pulses in the right lower extremity by my examination. Dr. Rai requested he be admitted to the hospitalist service and prepared for interventional angiography. He requested aspirin be administered along with therapeutic Lovenox. ECG EKG #1: EKG Time: 08:08 Rate: 81 Rhythm: Normal Sinus Comment Sinus rhythm with no ST elevation or depression. No abnormal intervals or axis deviation. Supraventricular premature beat noted. EKG #2: EKG Time: 08:12 Rate: 96 Rhythm: Normal Sinus Comment Sinus rhythm with frequent premature beats including a run of 3 beats consecutively. Otherwise no abnormal intervals or axis deviation. No ST elevation or depression. Diagnostic Imaging Diagonstic Imaging: Ultrasound Plain Films/CT/US/NM/MRI: leg Comments NAME: YADY DIAZ [facility] REC#: [id number] PT STATUS: ADM Samira : 1960 PHYSICIAN: CASSIE MARIEE MD ADMIT DATE: 06/21/23/[facility] Signed Date of Exam:06/21/23 US RIGHT LOW EXT [id number] HISTORY: Femoral artery stenosis with claudication, pulseless, right calf pain, cramping/claudication TECHNIQUE: Multiple real-time grayscale images were obtained over the right lower extremity in various projections. Additional duplex Doppler and color Doppler images were also obtained. COMPARISON: 05/09/2023 FINDINGS: Right lower extremity: Abnormal appearance of the right lower extremity arteries. There is flow in the common femoral and profunda femoral artery. However, there is occlusion with no detectable flow throughout the majority the superficial femoral artery. There is lower level monophasic flow in the popliteal vein likely owing to collateral vascularization. There is minimal amount of flow within the posterior tibial arteries with monophasic waveforms. There is absence of arterialized flow in the dorsalis pedis and peroneal arteries. IMPRESSION: 1. Abnormal right lower extremity arterial Doppler examination. Findings are positive for what appears to be occlusion throughout the right superficial femoral artery with reconstituted collateral flow into the popliteal artery. There is also absence of flow below the tibial peroneal trifurcation including the peroneal and dorsalis pedis arteries with minimal flow in the posterior tibial artery. These findings are adversely changed from recent imaging of one month ago. Dictated by: Dictated on workstation # [id number] Dict: 06/21/2346 Trans: 06/21/23 105 [facility] [id number] Interpreted by: YADY APARICIO DO Electronically signed by: YADY APARICIO DO 06/21/23 1056 Diagonstic Imaging: Ultrasound Plain Films/CT/US/NM/MRI: leg Comments NAME: YADY DIAZ MED REC#: [id number] PT STATUS: REG ER : 1960 PHYSICIAN: CASSIE MARIEE MD ADMIT DATE: 06/21/23/ER Signed Date of Exam:06/21/23 US VENOUS LOWER EXT RT INDICATION: Claudication, calf pain. TECHNIQUE: Multiple real-time grayscale images were obtained over the right lower extremity in various projections. Additional duplex Doppler and color Doppler images were also obtained. CORRELATION STUDY: None FINDINGS: Color and grayscale sonographic images demonstrate no intraluminal defect within the visualized portion of the common femoral, superficial femoral and/or popliteal veins to suggest thrombus formation. These vessels demonstrate normal response to compression and augmentation. No soft tissue fluid collection. IMPRESSION: 1. Negative for deep venous thrombosis of the right leg. Dictated by: Dictated on workstation # [id number] Dict: 06/21/23940 Trans: 06/21/23940 [id number] Interpreted by: YADY APARICIO DO Electronically signed by: YADY APARICIO DO 06/21/23940 Departure Impression Primary Impression: Critical limb ischemia of right lower extremity Additional Impression: Irregular heart rhythm Disposition: ADMITTED INPATIENT Condition: Stable Departure-Patient Inst. Referrals: LALA OLIVO DO (PCP/Family) Primary Care Physician Scripts Losartan Potassium (Losartan Potassium) 25 Mg Tablet 25 MG PO DAILY, #30 TAB 3 Refills Prov: ABI RAI MD 06/23/23 Aspirin (Aspirin EC) 81 Mg Tablet.dr 81 MG PO DAILY, #100 TAB 3 Refills Prov: ABI RAI MD 06/23/23 Rivaroxaban (XARELTO TABLET) 2.5 Mg Tablet 2.5 MG PO BID, #60 TAB 3 Refills Prov: ABI RAI MD 06/23/23 Copy Copies To 1: ABI RAI MD Copies To 2: LALA OLIVO JOSHUA T MD Jun 21, 2023 08:06
[2023-06-21 08:26] LABS: BASOPHILS % (AUTO) 0 % (0-10); EOSINOPHILS # (AUTO) 0.1 10^3/uL (0.0-0.3); EOSINOPHILS % (AUTO) 1 % (0-10); HEMATOCRIT 49 % (40-54); HEMOGLOBIN 16.2 g/dL (13.3-17.7); LYMPHOCYTES # (AUTO) 2.7 10^3/uL (1.0-4.0); LYMPHOCYTES % (AUTO) 25 % (12-44); MEAN CORPUSCULAR HEMOGLOBIN 27 pg (25-34); MEAN CORPUSCULAR HGB CONC 33 g/dL (32-36); MEAN CORPUSCULAR VOLUME 83 fL (80-99); MEAN PLATELET VOLUME 9.6 fL (9.0-12.2); MONOCYTES # (AUTO) 1.1 10^3/uL (0.0-1.0); MONOCYTES % (AUTO) 10 % (0-12); NEUTROPHILS # (AUTO) 6.7 10^3/uL (1.8-7.8); NEUTROPHILS % (AUTO) 63 % (42-75); PLATELET COUNT 337 10^3/uL (130-400); WHITE BLOOD COUNT 10.7 10^3/uL (4.3-11.0)
[2023-06-21 08:37] LABS: POTASSIUM 3.5 MMOL/L (3.6-5.0)
[2023-06-21 08:38] LABS: CALCIUM 9.1 MG/DL (8.5-10.1)
[2023-06-21 08:42] LABS: CREATININE SERUM 0.96 MG/DL (0.60-1.30)
[2023-06-21] MEDS ORDERED: ENOXAPARIN 100 MG/1 ML SYRINGE SC ONE (09:00)
[2023-06-21] MEDS ORDERED: ASPIRIN 81 MG CHEWABLE TABLET PO ONE (09:00)
[2023-06-21 09:05] LABS: FREE T4 (FREE THYROXINE) 0.95 NG/DL (0.70-1.48)
--- NOTE | 2023-06-21 09:42 | Diagnostic Imaging Report ---
INDICATION: Claudication, calf pain. TECHNIQUE: Multiple real-time grayscale images were obtained over the right lower extremity in various projections. Additional duplex Doppler and color Doppler images were also obtained. CORRELATION STUDY: None FINDINGS: Color and grayscale sonographic images demonstrate no intraluminal defect within the visualized portion of the common femoral, superficial femoral and/or popliteal veins to suggest thrombus formation. These vessels demonstrate normal response to compression and augmentation. No soft tissue fluid collection. IMPRESSION: 1. Negative for deep venous thrombosis of the right leg. Dictated by: Dictated on workstation # [id number]
--- NOTE | 2023-06-21 09:58 | Diagnostic Imaging Report ---
HISTORY: Femoral artery stenosis with claudication, pulseless, right calf pain, cramping/claudication TECHNIQUE: Multiple real-time grayscale images were obtained over the right lower extremity in various projections. Additional duplex Doppler and color Doppler images were also obtained. COMPARISON: 05/09/2023 FINDINGS: Right lower extremity: Abnormal appearance of the right lower extremity arteries. There is flow in the common femoral and profunda femoral artery. However, there is occlusion with no detectable flow throughout the majority the superficial femoral artery. There is lower level monophasic flow in the popliteal vein likely owing to collateral vascularization. There is minimal amount of flow within the posterior tibial arteries with monophasic waveforms. There is absence of arterialized flow in the dorsalis pedis and peroneal arteries. IMPRESSION: 1. Abnormal right lower extremity arterial Doppler examination. Findings are positive for what appears to be occlusion throughout the right superficial femoral artery with reconstituted collateral flow into the popliteal artery. There is also absence of flow below the tibial peroneal trifurcation including the peroneal and dorsalis pedis arteries with minimal flow in the posterior tibial artery. These findings are adversely changed from recent imaging of one month ago. Dictated by: Dictated on workstation # [id number]
[2023-06-21] MEDS ORDERED: LACTULOSE SYRUP 10GM/15ML 30ML UDC PO PRN (10:15)
[2023-06-21] MEDS ORDERED: ANTACID SUSPENSION 30 ML UDC PO PRN (10:15)
[2023-06-21] MEDS ORDERED: ONDANSETRON 4 MG ORAL DISSOLVE TABLET PO PRN (10:15)
[2023-06-21] MEDS ORDERED: ONDANSETRON INJECTION 4 MG/2 ML (SDV) IV PRN (10:15)
[2023-06-21] MEDS ORDERED: BISACODYL 10 MG SUPPOSITORY PR PRN (10:15)
[2023-06-21] MEDS ORDERED: diphenhydrAMINE 25 MG TABLET PO PRN (10:15)
[2023-06-21] MEDS ORDERED: MELATONIN 3 MG TABLET PO PRN (10:15)
[2023-06-21] MEDS ORDERED: MILK OF MAGNESIA 400 MG/5 ML 30 ML UDC PO PRN (10:15)
[2023-06-21] MEDS ORDERED: diphenhydrAMINE INJ 50 MG/ML VIAL IVP PRN (10:15)
[2023-06-21] MEDS ORDERED: CALCIUM CARBONATE 500 MG CHEW TABLET PO PRN (10:15)
[2023-06-21] MEDS ORDERED: ACETAMINOPHEN 325 MG TABLET PO PRN (10:15)
--- NOTE | 2023-06-21 11:42 | History & Physical-Hospitalist ---
BATSHEVA RAMSEY 06/21/23 1142: History of Present Illness HPI/Chief Complaint Pt is a 63 y/o male who presented to the ER today with an exacerbation of R lower extremity claudication and cramping with exertion. He states that he has had issues with PAD in his RLE for 8 months now with sxs getting worse every time he walked around. He was seen by Dr. Rai d/t decrease in blood flow in the RLE. 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 Stenting was determined necessary but insurance denied it. Today, he came in d/t increasing pain and trouble walking. Today, he reports that his pain is better managed as long as he does not move around. Denies CP, SOB, palpitations, or n/v. States that his R foot feels cold compared to his L foot. His normal PCP is Dr. Carrington. Source: patient Exam Limitations: no limitations Date Seen 06/21/23 Time Seen by a Provider: 11:42 Attending Physician Levar Garcia DO PCP Admitting Physician: Kemal Hanson MD Attending Physician: Kemal Hanson MD Referring Physician Date of Admission Jun 21, 2023 at 09:53 Home Medications & Allergies Home Medications Reviewed patient Home Medication Reconciliation performed by pharmacy medication reconciliations carpet technician and/or nursing. Patients Allergies have been reviewed. Allergies Allergies Coded Allergies No Known Drug Allergies (Unverified02/01/19) Past Uvemrhi-Assiqh-Iechie Hx Patient Social History Tobacco Use?: No Use of E-Cig and/or Vaping dev: No Substance use?: No Alcohol Use?: Yes Alcohol type: Hard Liquor Alcohol Frequency: Once in a while Pt feels they are or have been: No Current Status Advance Directives: No Communicates: Verbally Primary Language: Persian Preferred Spoken Language: Persian Past Medical History Surgeries: Orthopedic (ulnar entrapment release, shoulder surgery) High Cholesterol Diabetes, Non-Insulin dep Eye Injury Blood Disorders: No Review of Systems Constitutional: No chills, No fever EENTM: No double vision, No vision loss Respiratory: No cough, No dyspnea on exertion, No short of breath Cardiovascular: No chest pain, No palpitations Gastrointestinal: No abdominal pain, No constipation, No diarrhea, No nausea, No vomiting Genitourinary: No decreased output, No discharge, No dysuria Musculoskeletal: No back pain; muscle cramps; No muscle twitching Skin: change in color; No lesions, No pruritus, No rash Psychiatric/Neurological: Denies Headache, Denies Paresthesia Physical Exam Physical Exam Vital Signs Vital Signs - First Documented 06/21/23 07:45 Temp 36.6 Pulse 86 Resp 16 B/P (MAP) 209/102 (137) Pulse Ox 97 O2 Delivery Room Air Capillary Refill : Less Than 3 Seconds Height, Weight, BMI Height: 5'10.00" Weight: 235lbs. oz. 106.573401kl; 30.84 BMI Method:Stated General Appearance: No Apparent Distress, WD/WN Eyes: Bilateral Eye Normal Inspection, Bilateral Eye PERRL HEENT: PERRL/EOMI, TMs Normal Neck: Full Range of Motion, Normal Inspection, Non Tender Respiratory: Chest Non Tender, Lungs Clear, Normal Breath Sounds, No Accessory Muscle Use, No Respiratory Distress Cardiovascular: Regular Rate, Rhythm, No Murmur, Other (R LE no palpable pulse) Gastrointestinal: Normal Bowel Sounds, Non Tender, Soft Extremity: Non Tender, No Calf Tenderness, Slow Capillary Refill, Other (No palpable pulse in RLE) Neurologic/Psychiatric: Alert, Oriented x3, No Motor/Sensory Deficits, Normal Mood/Affect Skin: Cool (R foot); No Diaphoresis, No Rash Lymphatic: No Adenopathy Results Results/Procedures Labs Laboratory Tests 06/21/23 08:20 Patient resulted labs reviewed. Assessment/Plan Admission Diagnosis Critical limb ischemia, PAD Admission Status: Inpatient Order (span 2 midnights) Reason for Inpatient Admission: Critical limb ischemia, PAD Assessment and Plan Critical limb ischemia of RLE, PAD - US showed occulsion in R superficial femoral artery, absence of blood flow below tibial peroneal trifurcation with minimal flow in posterior tibial artery - Interventional angiography with Dr. Rai tomorrow - Continue enoxaparin 40 mg SQ /d - Continue Plavix 75 mg PO/d (home med) - Continue atorvastatin 20 mg PO /d (home med) - Continue Tylenol 650 mg PO q 4hrs PRN - Cardiology following, appreciate recommendations KEMAL HANSON MD 06/21/231918: Assessment/Plan Assessment and Plan Pt admitted to the hospital with critical limb ischemia. This has been a known issue but was unable to have intervention done as an outpatient as his insurance denied the procedure. His pain continued to worsen and he had difficulty ambulating due to this so he presented to the ER. Dr Rai was consulted and recommended admit to take to the research laboratory technician given progression of disease and symptoms. Currently pain free when at rest. Dr Rai also planning a stress test tomorrow. Supervisory-Addendum Brief Verification & Attestation Participated in pt care: history, MDM, physical Personally performed: exam, history, MDM, supervision of care Care discussed with: Medical Student Procedures: n/a Results interpretation: Verified all documentation Verification and Attestation of Medical Student E/M Service A medical student performed and documented this service in my presence. I reviewed and verified all information documented by the medical student and made modifications to such information, when appropriate. I personally performed the physical exam and medical decision making. Kemal Hanson, Jun 21, 2023,19:14 BATSHEVA RAMSEY Jun 21, 2023 11:42 KEMAL HANSON MD Jun 21, 2023 19:19
--- NOTE | 2023-06-21 12:00 | Consultation-Cardiology ---
HPI-Cardiology Cardiology Consultation Date of Consultation 06/21/23 Date of Admission Time Seen by Provider: 11:55 Indication: Right leg pain HPI 63-year-old gentleman with a history of hypertension, hyperlipidemia, severe SFA stenosis/occlusion, had an abnormal ultrasound. Patient has been having significant pain in his right leg which has been worsening, has absent pulse, c anselmo into the emergency room and he was admitted, started on Lovenox and aspirin and Plavix. On my evaluation he was still having some pain and discomfort in his right leg. Home Medications & Allergies Allergies: Coded Allergies: No Known Drug Allergies (Unverified , 02/01/19) Home Medication List Reviewed: Yes SFL-Xrewpn-Wgucmk Hx Patient Social History Marital Status: Employed/Student: employed 2[employer] Smoke Exposure: No Recent Hopitalizations: No Alcohol Use?: Yes Past Medical History Discussed below Family Medical History Significant Family History: No Pertinent Family Hx Review of Systems-General Review of Systems Constitutional: No chills, No fever EENTM: No double vision, No vision loss Respiratory: No cough, No dyspnea on exertion, No short of breath Cardiovascular: No chest pain; palpitations, other (Claudication, resting pain) Gastrointestinal: No abdominal pain, No constipation, No diarrhea, No nausea, No vomiting Genitourinary: No decreased output, No discharge, No dysuria Musculoskeletal: No back pain; muscle cramps; No muscle twitching Skin: change in color; No lesions, No pruritus, No rash Psychiatric/Neurological: Denies Headache, Denies Paresthesia Reviewed Test Results Reviewed Test Results Lab Laboratory Tests Test 06/21/23 08:20 Range/Units White Blood Count 10.7 4.3-11.0 10^3/uL Red Blood Count 5.91 H 4.30-5.52 10^6/uL Hemoglobin 16.2 13.3-17.7 g/dL Hematocrit 49 40-54 % Mean Corpuscular Volume 83 80-99 fL Mean Corpuscular Hemoglobin 27 25-34 pg Mean Corpuscular Hemoglobin Concent 33 32-36 g/dL Red Cell Distribution Width 14.7 H 10.0-14.5 % Platelet Count 337 130-400 10^3/uL Mean Platelet Volume 9.6 9.0-12.2 fL Immature Granulocyte % (Auto) 0 % Neutrophils (%) (Auto) 63 42-75 % Lymphocytes (%) (Auto) 25 12-44 % Monocytes (%) (Auto) 10 0-12 % Eosinophils (%) (Auto) 1 0-10 % Basophils (%) (Auto) 0 0-10 % Neutrophils # (Auto) 6.7 1.8-7.8 10^3/uL Lymphocytes # (Auto) 2.7 1.0-4.0 10^3/uL Monocytes # (Auto) 1.1 H 0.0-1.0 10^3/uL Eosinophils # (Auto) 0.1 0.0-0.3 10^3/uL Basophils # (Auto) 0.0 0.0-0.1 10^3/uL Immature Granulocyte # (Auto) 0.0 0.0-0.1 10^3/uL Sodium Level 139 135-145 MMOL/L Potassium Level 3.5 L 3.6-5.0 MMOL/L Chloride Level 105 98-107 MMOL/L Carbon Dioxide Level 24 21-32 MMOL/L Anion Gap 10 5-14 MMOL/L Blood Urea Nitrogen 14 7-18 MG/DL Creatinine 0.96 0.60-1.30 MG/DL Estimat Glomerular Filtration Rate 89 BUN/Creatinine Ratio 15 Glucose Level 118 H 70-105 MG/DL Calcium Level 9.1 8.5-10.1 MG/DL Magnesium Level 2.0 1.6-2.4 MG/DL Thyroid Stimulating Hormone (TSH) 1.29 0.35-4.94 UIU/ML Free Thyroxine 0.95 0.70-1.48 NG/DL Physical Exam Physical Exam Vital Signs Vital Signs - First Documented 06/21/23 07:45 Temp 36.6 Pulse 86 Resp 16 B/P (MAP) 209/102 (137) Pulse Ox 97 O2 Delivery Room Air Capillary Refill : Less Than 3 Seconds Height, Weight, BMI Height: 5'10.00" Weight: 235lbs. oz. 106.179079jw; 30.84 BMI Method:Stated General Appearance: No Apparent Distress, WD/WN Eyes: Bilateral Eye Normal Inspection, Bilateral Eye PERRL HEENT: PERRL/EOMI, TMs Normal Neck: Full Range of Motion, Normal Inspection, Non Tender Respiratory: Chest Non Tender, Lungs Clear, Normal Breath Sounds, No Accessory Muscle Use, No Respiratory Distress Cardiovascular: Regular Rate, Rhythm, No Murmur, Other (R LE no palpable pulse) Gastrointestinal: Normal Bowel Sounds, Non Tender, Soft Extremity: Non Tender, No Calf Tenderness, Slow Capillary Refill, Other (No palpable pulse in RLE) Neurologic/Psychiatric: Alert, Oriented x3, No Motor/Sensory Deficits, Normal Mood/Affect Skin: Cool (R foot); No Diaphoresis, No Rash Lymphatic: No Adenopathy A/P-Cardiology Admission Diagnosis Critical limb ischemia Peripheral arterial disease Hyperlipidemia Hypertension Assessment/Plan Peripheral arterial disease, resting pain, had progressive claudication Ultrasound was done in the emergency room today showing total occlusion of the right SFA. Absent pulse Planning to proceed with peripheral angiogram High risk for coronary artery disease, Patient has hyperlipidemia, peripheral arterial disease, planning to evaluate Lexiscan Myoview stress test Mild bilateral carotid stenosis Hyperlipidemia, evaluate lipid profile Continue on aspirin Plavix and Lipitor and Lovenox. ABI KENT MD Jun 21, 2023 11:59
[2023-06-21 12:27] VITALS: BP 142/87
[2023-06-21 13:02] VITALS: BP 142/87
[2023-06-21] MEDS ORDERED: RT-ALBUTEROL SULF 2.5 MG/3 ML PRE-MIX VIAL INH PRN (13:15)
[2023-06-21] MEDS ORDERED: ATOR20TA66 PO (14:47)
[2023-06-21] MEDS ORDERED: CLOP75TA28 PO (14:47)
[2023-06-21 16:28] VITALS: BP 145/88
[2023-06-21] MEDS ORDERED: ENOXAPARIN 100 MG/1 ML SYRINGE SC SCH (19:30)
[2023-06-21 21:04] VITALS: BP 129/78
[2023-06-21] MEDS: ENOXAPARIN 100 MG/1 ML SYRINGE SC SCH (21:06)
[2023-06-21 23:23] VITALS: BP 137/62
[2023-06-22] VITALS (22 sets, daily range): BP systolic 117–155; BP diastolic 58–947
[2023-06-22 05:48] LABS: HEMATOCRIT 47 % (40-54); HEMOGLOBIN 15.8 g/dL (13.3-17.7); MEAN CORPUSCULAR HEMOGLOBIN 28 pg (25-34); MEAN CORPUSCULAR HGB CONC 34 g/dL (32-36); MEAN CORPUSCULAR VOLUME 82 fL (80-99); MEAN PLATELET VOLUME 9.8 fL (9.0-12.2); PLATELET COUNT 282 10^3/uL (130-400); WHITE BLOOD COUNT 10.3 10^3/uL (4.3-11.0)
[2023-06-22 06:08] LABS: PROTHROMBIN TIME PATIENT 13.6 SEC (12.2-14.7)
[2023-06-22 06:10] LABS: CALCIUM 9.1 MG/DL (8.5-10.1); CREATININE SERUM 0.85 MG/DL (0.60-1.30); POTASSIUM 3.8 MMOL/L (3.6-5.0)
[2023-06-22] MEDS ORDERED: LIDOCAINE 1% INJ 20 ML VIAL ONE (08:16)
[2023-06-22] MEDS ORDERED: HEParin (CATH LAB) 2,000 ML IV ONE (08:16)
[2023-06-22] MEDS ORDERED: NS IV 1000 ML 1,000 ML ONE (08:16)
[2023-06-22] MEDS: ENOXAPARIN 100 MG/1 ML SYRINGE SC SCH (08:56)
[2023-06-22] MEDS ORDERED: ENOXAPARIN 40 MG/0.4 ML SYRINGE SQ SCH (09:00)
[2023-06-22] MEDS ORDERED: ASPIRIN 325 MG TABLET PO SCH (09:00)
[2023-06-22] MEDS ORDERED: CLOPIDOGREL 75 MG TABLET PO SCH ×2 (09:00)
[2023-06-22] MEDS ORDERED: fentaNYL INJECTION 100 MCG/2 ML VIAL ONE ×2 (09:13→09:46)
[2023-06-22] MEDS ORDERED: MIDAZOLAM INJ 5 MG/5 ML VIAL ONE ×2 (09:13→09:46)
[2023-06-22] MEDS ORDERED: HEParin 1000 UNIT/ML (10ML VIAL) FOR BOLUS ONE (09:57)
--- NOTE | 2023-06-22 10:16 | Progress Note - Hospitalist ---
BATSHEVA RAMSEY 06/22/23 1016: Subjective HPI/CC On Admission Date Seen by Provider: Jun 22, 2023 Time Seen by Provider: 10:12 Pt is a 63 y/o male who presented to the ER today with an exacerbation of R lower extremity claudication and cramping with exertion. He states that he has had issues with PAD in his RLE for 8 months now with sxs getting worse every time he walked around. He was seen by Dr. Rai d/t decrease in blood flow in the RLE. 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 Stenting was determined necessary but insurance denied it. Today, he came in d/t increasing pain and trouble walking. Today, he reports that his pain is better managed as long as he does not move around. Denies CP, SOB, palpitations, or n/v. States that his R foot feels cold compared to his L foot. His normal PCP is Dr. Carrington. Subjective/Events-last exam Pt has no concerns today and denies any significant change overnight. Reports that he has not been up and moving d/t the R LE pain that he has when he is active for more than 3-4 min at a time. Denies pain at rest. States that his R foot still feels cold. Denies CP, palpitations or SOB. Objective Exam Vital Signs Vital Signs Date Time Temp Pulse Resp B/P (MAP) Pulse Ox O2 Delivery O2 Flow Rate FiO2 06/22/23 08:19 36.9 73 18 155/91 (112) 97 Room Air Capillary Refill : Less Than 3 Seconds General Appearance: No Apparent Distress, WD/WN HEENT: PERRL/EOMI, Normal ENT Inspection Neck: Normal Inspection, Non Tender, Supple Respiratory: Chest Non Tender, Lungs Clear, Normal Breath Sounds, No Accessory Muscle Use, No Respiratory Distress Cardiovascular: Regular Rate, Rhythm, No Murmur, Other (No palpable pulse in R foot) Gastrointestinal: Normal Bowel Sounds, Non Tender, Soft Extremity: Slow Capillary Refill, Other (R foot without palpable pulses) Neurologic/Psychiatric: Alert, Oriented x3, No Motor/Sensory Deficits Skin: Normal Color, Warm/Dry Lymphatic: No Adenopathy Results/Procedures Lab Laboratory Tests 06/22/23 05:02 Patient resulted labs reviewed. Assessment/Plan Assessment and Plan Assess & Plan/Chief Complaint Critical limb ischemia of RLE, PAD - US showed occulsion in R superficial femoral artery, absence of blood flow below tibial peroneal trifurcation with minimal flow in posterior tibial artery - Interventional angiography with Dr. Rai this morning. - Continue enoxaparin 40 mg SQ /d - Continue Plavix 75 mg PO/d (home med) - Continue atorvastatin 20 mg PO /d (home med) - Continue Tylenol 650 mg PO q 4hrs PRN - Cardiology following, appreciate recommendations KEMAL HANSON MD 06/22/23 1533: Assessment/Plan Assessment and Plan Assess & Plan/Chief Complaint Plan for peripheral angiography today. Right SFA with balloon and two stents placed. Saw just postop in the ICU in recovery. Contineu Plavix, ASA, statin. Supervisory-Addendum Brief Verification & Attestation Participated in pt care: history, MDM, physical Personally performed: exam, history, MDM, supervision of care Care discussed with: Medical Student Procedures: n/a Results interpretation: Verified all documentation Verification and Attestation of Medical Student E/M Service A medical student performed and documented this service in my presence. I reviewed and verified all information documented by the medical student and made modifications to such information, when appropriate. I personally performed the physical exam and medical decision making. Kemal Hanson, Jun 22, 2023,15:28 BATSHEVA RAMSEY Jun 22, 2023 10:16 KEMAL HANSON MD Jun 22, 2023 15:33
[2023-06-22] MEDS ORDERED: EPTIFIBATIDE DRIP 100 ML IV ONE (11:06)
[2023-06-22] MEDS ORDERED: EPTIFIBATIDE BOLUS 10 ML IV ONE (11:07)
[2023-06-22] MEDS ORDERED: PATIENT MAY USE OWN MEDS, ALL PO SCH (11:15)
[2023-06-22] MEDS ORDERED: CLOPIDOGREL 300 MG TABLET PO ONE (11:24)
--- NOTE | 2023-06-22 11:24 | Peripheral Report ---
Peripheral Report Physician (s)/Excavating Supervisor (s) Physician ABI KENT MD Pre-Procedure Diagnosis Pre-Procedure Diagnosis: Critical limb ischemia Post-Procedure Note Procedure Start Date: Jun 22, 2023 Name of Procedure: Bilateral lower extremities runoff Third order Additional imaging Stenting to the right SFA Thrombectomy to the right deep femoral artery Findings/Procedure Note PROCEDURE NOTE: 63-year-old gentleman with peripheral arterial disease, admitted with acute limb ischemia, right lower extremity pain. Scheduled for peripheral angiogram. After explaining the procedure to the patient, all pros and cons were explained, all questions were answered. The patient signed the consent and then he was placed on the cardiac catheterization laboratory. The patient was placed on the cardiac catheterization laboratory. Groin was prepped SL fashion local anesthesia was used. Sheath placed in the left femoral artery, runoff to the left leg was done. Rim catheter was used and runoff to the right leg was done, total occlusion of the right SFA was noted. Sheath was exchanged and 6 Thai 45 sheath was used. Patient received total of 9000 units of heparin and bolus of Integrilin and Integrilin drip I was able to cross the SFA with command 18 and mini catheter advanced to the distal SFA/popliteal artery, I did manual injection through the mini catheter in the popliteal artery. Establish a true lumen. I was unable to advance the balloon negative initially I used a 3 x 100 balloon and did multiple inflation and then I used a 6 x 200 [place] 18 balloon and did multiple inflation. There was a dissection and slow flow in the SFA. I proceeded with deployment of 2 overlapping Supera stent 6 x 150 extending from the proximal SFA to the distal portion, postdilated with 6 x 150 balloon. Angiogram showed excellent flow. No residual stenosis. I noticed a thrombus in the right deep femoral artery. Probably migrated during the balloon angioplasty. I was able to advance the wire in the deep femoral artery then I did export catheter and try to do thrombectomy. It was slight improvement but it was a large burden of thrombus, I am hesitant to do balloon angioplasty which will distribute the thrombus downstream. I decided to start aggressive anticoagulation and evaluate. Patient received total of 9000 units of heparin and started on Integrilin drip f or 24 hours. Sheath was exchanged for short 6 Thai sheath. FINDINGS: Right lower extremity: Right common femoral and common iliac arteries are patent Right SFA is totally occluded proximally reconstructed by collateral at the popliteal level. Successful balloon angioplasty then deployment of 2 overlapping Supera stent 6 x 150 with excellent results no residual stenosis. Right deep femoral artery had a thrombus migration during intervening on the right SFA. I attempted thrombectomy with some improvement but no resolution of the thrombus. Right popliteal artery, tibioperoneal trunk, anterior tibial, posterior tibial and peroneal artery are patent with brisk flow Left lower extremity: Left common femoral artery is patent with no obstructive disease Left SFA, popliteal artery are patent with slow flow Left tibioperoneal trunk and trifurcation is patent. CONCLUSIONS: Total occlusion of the right SFA successful balloon angioplasty and deployment of 2 overlapping stent extending from the proximal SFA to the popliteal artery using 2 Supera 6 x 150 overlapping with no residual stenosis Thrombus in the deep femoral artery on the right, attempted thrombectomy with some improvement but no resolution of the thrombus. Nonobstructive disease on the left side DISCUSSION AND RECOMMENDATIONS: Patient was started on aspirin Plavix and Xarelto. We will continue maximizing medical therapy Anesthesia Type: Conscious Sedation Estimated blood loss (mL): 30 ml Contrast Amount: 100 ml Post-Procedure Diagnosis Post-operative diagnosis: Critical limb ischemia Peripheral arterial disease Hypertension Hyperlipidemia ABI KENT MD Jun 22, 2023 11:24
--- NOTE | 2023-06-22 11:35 | Cardiology Progress Note ---
Subjective Date Seen by Provider: Jun 22, 2023 Time Seen by Provider: 11:32 Subjective/Events-last exam Patient was seen and evaluated, no new complaint. Feeling better. Objective-Cardiology Exam Last Set of Vital Signs Vital Signs 06/22/23 08:19 Temp 36.9 Pulse 73 Resp 18 B/P (MAP) 155/91 (112) Pulse Ox 97 O2 Delivery Room Air I&O Intake and Output 06/21/23 23:59 Intake Total 440 ml Balance 440 ml Intake Oral 440 ml # Voids 2 Daily Weight Change No General: Alert, Oriented X3, Cooperative HEENT: Atraumatic, PERRLA Neck: Supple, No JVD, No Thyromegaly Lungs: Clear to Auscultation, Normal Air Movement Heart: Regular Rate, Normal S1, Normal S2, No Murmurs Abdomen: Normal Bowel Sounds, Soft, No Tenderness, No Hepatosplenomegaly, No Masses Extremities: No Clubbing, No Cyanosis, No Edema, Normal Pulses, No Tenderness/Swelling Skin: No Rashes, No Breakdown, No Significant Lesion Neuro: Normal Gait, Normal Speech, Strength at 5/5 X4 Ext, Normal Tone, Sensation Intact Psych/Mental Status: Mental Status NL, Mood NL Results Lab Laboratory Tests 06/22/23 05:02 A/P-Cardiology Admission Diagnosis Critical limb ischemia Peripheral arterial disease Hyperlipidemia Hypertension Assessment/Plan Peripheral arterial disease, critical limb ischemia Peripheral angiogram showed total occlusion of the right SFA with heavy thrombus. Balloon angioplasty then deployment of 2 overlapping Supera stent 5 x 150 with excellent result no residual stenosis. Thrombus noted in the deep femoral artery on the right migrated from the SFA during intervention. Patient was started on Integrilin drip, aspirin Plavix and Xarelto History of TIA, I am concerned about atrial fibrillation with embolization as a cause for his TIA and acute occlusion of the SFA. I am proceeding with loop monitor implant and starting him on Xarelto Multiple risk factors for coronary artery disease, had a borderline stress test Currently asymptomatic. Continue to monitor Mild bilateral carotid stenosis Hyperlipidemia, evaluate lipid profile ABI KENT MD Jun 22, 2023 11:35
[2023-06-22] MEDS: NS IV 1000 ML 1,000 ML IV SCH ×2 (12:06→21:50)
[2023-06-22] MEDS: EPTIFIBATIDE DRIP 100 ML IV SCH ×3 (12:38→23:21)
[2023-06-22] MEDS: RIVAROXABAN 2.5 MG TABLET PO SCH (20:36)
[2023-06-23 04:20] LABS: HEMATOCRIT 46 % (40-54); HEMOGLOBIN 15.3 g/dL (13.3-17.7); MEAN CORPUSCULAR HEMOGLOBIN 27 pg (25-34); MEAN CORPUSCULAR HGB CONC 34 g/dL (32-36); MEAN CORPUSCULAR VOLUME 81 fL (80-99); MEAN PLATELET VOLUME 9.9 fL (9.0-12.2); PLATELET COUNT 275 10^3/uL (130-400)
[2023-06-23 04:36] LABS: CALCIUM 8.9 MG/DL (8.5-10.1)
[2023-06-23 04:40] LABS: CREATININE SERUM 0.82 MG/DL (0.60-1.30)
[2023-06-23 06:06] VITALS: BP 139/83
[2023-06-23] MEDS: EPTIFIBATIDE DRIP 100 ML IV SCH (06:06)
[2023-06-23] MEDS: NS IV 1000 ML 1,000 ML IV SCH (07:49)
--- NOTE | 2023-06-23 07:59 | Cardiology Progress Note ---
Subjective Date Seen by Provider: Jun 23, 2023 Time Seen by Provider: 07:55 Subjective/Events-last exam Patient was seen at bedside, laying down comfortably, feeling better. Objective-Cardiology Exam Last Set of Vital Signs Vital Signs 06/23/23 06/23/23 06/23/23 06:00 06:06 07:36 Temp 36.6 Pulse 89 Resp 13 B/P (MAP) 139/83 Pulse Ox 99 O2 Delivery Room Air I&O Intake and Output 06/22/23 23:59 Intake Total 460 ml Balance 460 ml Intake Oral 360 ml IV Total 100 ml # Voids 4 General: Alert, Oriented X3, Cooperative HEENT: Atraumatic, PERRLA Neck: Supple, No JVD, No Thyromegaly Lungs: Clear to Auscultation, Normal Air Movement Heart: Regular Rate, Normal S1, Normal S2, No Murmurs Abdomen: Normal Bowel Sounds, Soft, No Tenderness, No Hepatosplenomegaly, No Masses Extremities: No Clubbing, No Cyanosis, No Edema, Normal Pulses, No Tenderness/Swelling Skin: No Rashes, No Breakdown, No Significant Lesion Neuro: Normal Gait, Normal Speech, Strength at 5/5 X4 Ext, Normal Tone, Sensation Intact Psych/Mental Status: Mental Status NL, Mood NL Results Lab Laboratory Tests 06/23/23 03:16 A/P-Cardiology Admission Diagnosis Critical limb ischemia Peripheral arterial disease Hyperlipidemia Hypertension Assessment/Plan Critical limb ischemia, peripheral arterial disease Peripheral angiogram showed total occlusion of the right SFA with heavy th rombus. Balloon angioplasty then deployment of 2 overlapping Supera stent 5 x 150 with excellent result no residual stenosis. Thrombus noted in the deep femoral artery on the right migrated from the SFA during intervention. Patient was started on Integrilin drip, aspirin Plavix and Xarelto Patient will finish his Integrilin drip around 10 AM, he is okay for discharge History of TIA, I am concerned about atrial fibrillation with embolization as a cause for his TIA and acute occlusion of the SFA. I will proceed with loop monitor Multiple risk factors for coronary artery disease, had a borderline stress test Currently asymptomatic. Continue to monitor Mild bilateral carotid stenosis Hyperlipidemia, evaluate lipid profile ABI KENT MD Jun 23, 2023 07:58
[2023-06-23] MEDS: RIVAROXABAN 2.5 MG TABLET PO SCH (08:00)
[2023-06-23] MEDS ORDERED: LIDOCAINE 1% INJ 20 ML VIAL ONE (08:01)
[2023-06-23 08:22] LABS: TRIGLYCERIDES 73 MG/DL (<150); VLDL CHOLESTEROL 15 MG/DL (5-40)
[2023-06-23 08:27] LABS: CHOLESTEROL 198 MG/DL (< 200)
[2023-06-23 08:28] LABS: HDL CHOLESTEROL 50 MG/DL (40-60)
--- NOTE | 2023-06-23 08:32 | Implantation of Loop Monitor ---
Implant of Loop Monitior IMPLANTATION OF LOOP MONITOR REPORT DATE OF PROCEDURE: 06/23/23 PREOP DIAGNOSIS: Cryptogenic stroke POSTOP DIAGNOSIS: Cryptogenic stroke PROCEDURE DETAILS: The patient is a 63 male with history of TIA, critical limb ischemia, noted to have heavy thrombus burden in his right leg, I am suspecting underlying atrial fibrillation with embolization. Therefore implantable loop recorder was discussed and agreed with the patient. Informed consent was taken. All risks and complications were discussed at length. The patient was draped and prepped in the usual sterile fashion. Local anesthesia was lidocaine, which was given in the substernal area close to the 4th intercostal space. Loop monitor sceniost[employer] with serial number [id number] was implanted according to the protocol. Steri- Strips were placed at the end of the procedure. There were no complications and the patient tolerated the procedure well. ANESTHESIA: Local anesthesia with lidocaine. COMPLICATIONS: None CONTRAST/FLUOROSCOPY: None CONCLUSION: Successful implantation of loop monitor with no complication ABI KENT MD Jun 23, 2023 08:32
[2023-06-23] MEDS ORDERED: LOSA25TA41 PO (08:33)
[2023-06-23] MEDS ORDERED: ASPI-1238 PO (08:33)
[2023-06-23] MEDS ORDERED: RIVA2.5T PO (08:33)
--- NOTE | 2023-06-23 08:34 | Discharge Inst-Post CATH ---
Discharge Inst-CATH/EP Problems Reviewed?: Yes Post Cardiac Cath/EP D/C Inst Follow Up/Plan Appointment with Dr. Rai's office in 2 to 4 weeks <b>CARDIAC CATH/EP PROCEDURE DISCHARGE INSTRUCTIONS</b> ACTIVITY * Go Home directly and rest. * Limit activity of the leg (or wrist if it was used) for 7 days including aer obics, swimming, jogging, bicycling, etc. * Restrict stair-climbing for 7 days if possible, if not, climb up with your non-cath leg, then bring together on the same step. * Avoid lifting, pushing, pulling or excessive movement of the affected extremi ty for 7 days. * Customary sexual activity may be resumed after 2 days-use caution not to use a position that strains or causes pain to the affected extremity. * No driving for 24 hours. * NO SMOKING. * Avoid straining for bowel movements for 7 days. * Gentle walking on level ground is allowed. * Returning to work will depend on the type of procedure and the results. Your doctor will discuss this with you. CALL YOUR DOCTOR FOR ANY OF THE FOLLOWING: *If bleeding from the puncture site occurs- Apply gentle pressure to site with clean cloth and call your doctor or EMS. * If a knot or lump forms under the skin, increases in size, or causes pain. * If bruising appears to be worsening or moving further down your leg instead of disappearing. * Temperature above 101 F. CARE OF YOUR GROIN INCISION; * Bruising or purple discoloration of the skin near the puncture site is common. * You may shower only, no bathtub bathing for 5 days. Be careful to avoid slipping as your leg may feel stiff. * If a closure device was used on your femoral artery, please see the attached guide regarding care of the device and your leg. * Leave dressing on FOR 24 hours. CARE OF YOUR WRIST INCISION; * Bruising or purple discoloration of the skin near the puncture site is common. * You may shower. * DO NOT submerge wrist. * Leave dressing on FOR 24 hours. ABI RAI MD Jun 23, 2023 08:34
[2023-06-23] MEDS ORDERED: ASPIRIN enteric coated 81MG TABLET PO SCH (09:00)
[2023-06-23] MEDS ORDERED: CLOPIDOGREL 75 MG TABLET PO SCH (09:00)
--- NOTE | 2023-06-23 11:20 | Physical Therapy Progress Note ---
Therapy Progress Note Patient declined skilled PT intervention and reports he is up independently without difficulty. RN confirms. DONNA RENEE PT Jun 23, 2023 11:19
--- NOTE | 2023-06-23 11:24 | Discharge Summary ---
BATSHEVA RAMSEY 06/23/23 1124: Diagnosis/Chief Complaint Date of Admission Jun 21, 2023 at 09:53 Date of Discharge 06/23/2023 Discharge Date: Jun 23, 2023 Discharge Time: 11:13 Admission Diagnosis Critical limb ischemia, PAD Primary Care Levar Garcia DO Discharge Summary Discharge Physical Exam Allergies: Coded Allergies: No Known Drug Allergies (Unverified , 02/01/19) Vitals & I&Os Vital Signs Date Time Temp Pulse Resp B/P (MAP) Pulse Ox O2 Delivery O2 Flow Rate FiO2 06/23/23 10:03 82 9 95 06/23/23 10:00 Room Air 06/23/23 07:36 36.6 General Appearance: No Apparent Distress, WD/WN HEENT: PERRL/EOMI, Normal ENT Inspection Respiratory: Chest Non Tender, Lungs Clear, Normal Breath Sounds, No Accessory Muscle Use, No Respiratory Distress Cardiovascular: Regular Rate, Rhythm, No Gallop, No JVD, No Murmur Gastrointestinal: Normal Bowel Sounds, Non Tender, Soft Extremity: Normal Inspection, Non Tender, No Calf Tenderness Skin: Normal Color, Warm/Dry Neurologic/Psychiatric: Alert, Oriented x3, No Motor/Sensory Deficits, Normal Mood/Affect Hospital Course Was the Problem List Reviewed?: Yes Pt is a 63 y/o male who presented to the ER 06/21 with an exacerbation of R lower extremity claudication and cramping with exertion. He had issues with PAD in his RLE for 8 months with sxs getting worse every time he walked. 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 Stenting was determined necessary but insurance denied it. While in hospital, got a balloon angioplasty with [address] Rai in the superficial femoral artery. Was started on ASA, plavix, and xarelto. Holter monitor was also placed to evaluate for afib. Will follow up with cardiology outpatient. Labs (last 24 hrs) Laboratory Tests 06/23/23 03:16: White Blood Count 15.0H, Red Blood Count 5.64H, Hemoglobin 15.3, Hematocrit 46, Mean Corpuscular Volume 81, Mean Corpuscular Hemoglobin 27, Mean Corpuscular Hemoglobin Concent 34, Red Cell Distribution Width 14.4, Platelet Count 275, Mean Platelet Volume 9.9, Sodium Level 136, Potassium Level 4.0, Chloride Level 106, Carbon Dioxide Level 21, Anion Gap 9, Blood Urea Nitrogen 12, Creatinine 0.82, Estimat Glomerular Filtration Rate 99, BUN/Creatinine Ratio 15, Glucose Level 108H, Calcium Level 8.9, Triglycerides Level 73, Cholesterol Level 198, LDL Cholesterol Direct 149H, VLDL Cholesterol 15, HDL Cholesterol 50 Patient resulted labs reviewed. Pending Labs Laboratory Tests 06/23/23 03:16: White Blood Count 15.0, Red Blood Count 5.64, Hemoglobin 15.3, Hematocrit 46, Mean Corpuscular Volume 81, Mean Corpuscular Hemoglobin 27, Mean Corpuscular Hemoglobin Concent 34, Red Cell Distribution Width 14.4, Platelet Count 275, Mean Platelet Volume 9.9, Sodium Level 136, Potassium Level 4.0, Chloride Level 106, Carbon Dioxide Level 21, Anion Gap 9, Blood Urea Nitrogen 12, Creatinine 0.82, Estimat Glomerular Filtration Rate 99, BUN/Creatinine Ratio 15, Glucose Level 108, Calcium Level 8.9, Triglycerides Level 73, Cholesterol Level 198, LDL Cholesterol Direct 149, VLDL Cholesterol 15, HDL Cholesterol 50 Imaging: Reviewed Imaging Films, Reviewed Imaging Report Discharge Home Medications: Active Scripts Active Losartan Potassium 25 Mg Tablet 25 Mg PO DAILY Aspirin EC (Aspirin) 81 Mg Tablet.dr 81 Mg PO DAILY Xarelto Tablet (Rivaroxaban) 2.5 Mg Tablet 2.5 Mg PO BID Reported Atorvastatin Calcium 20 Mg Tablet 20 Mg PO DAILY Clopidogrel (Clopidogrel Bisulfate) 75 Mg Tablet 75 Mg PO DAILY Instructions to patient/family Please see electronic discharge instructions given to patient. KEMAL HANSON MD 06/23/23 1422: Discharge Summary Discharge Physical Exam Allergies: Coded Allergies: No Known Drug Allergies (Unverified , 02/01/19) Discussion & Recommendations Discharge Planning: >30 minutes discharge planning Supervisory-Addendum Brief Verification & Attestation Participated in pt care: history, MDM, physical Personally performed: exam, history, MDM, supervision of care Care discussed with: Medical Student Procedures: n/a Results interpretation: Verified all documentation Verification and Attestation of Medical Student E/M Service A medical student performed and documented this service in my presence. I reviewed and verified all information documented by the medical student and made modifications to such information, when appropriate. I personally performed the physical exam and medical decision making. Kemal Hanson, Jun 23, 2023,14:21 BATSHEVA RAMSEY 16, 2023 11:24 KEMAL HANSON MD Jun 23, 2023 14:22
== END 2023-06-23 10:06 | disposition home or self-care (01) ==
LOC: EDUNIT# 07:34 → ER 07:38 → CSD 09:53 → UNDOADMOB 09:53 → CSD 10:46 → ICU 06-22 11:35 → UNDODISOB 06-23 10:06
PROVIDERS: ADMIT Family Medicine; ATTEND Family Medicine
DX: I70.221 Atherosclerosis of native arteries of extremities with rest pain, right leg (principal); I70.92 Chronic total occlusion of artery of the extremities; I74.3 Embolism and thrombosis of arteries of the lower extremities; I63.9 Cerebral infarction, unspecified; I65.23 Occlusion and stenosis of bilateral carotid arteries; E78.5 Hyperlipidemia, unspecified; I10 Essential (primary) hypertension; Z86.73 Personal history of transient ischemic attack (TIA), and cerebral infarction without residual deficits; Z79.82 Long term (current) use of aspirin; Z79.02 Long term (current) use of antithrombotics/antiplatelets
CPT/HCPCS: 33285; 37226; 80048 ×3; 80061; 83735; 84439; 84443; 85025; 85027 ×2; 85347; 85610; 93005; 93041; 93926; 93971; 94760; 96366; 96372 ×2; 96375; 96376; 99284; C1725 ×3; C1757; C1764; C1769 ×3; C1876; C1887 ×3; C1894 ×2; C8929; G0378 ×2; 36415; 93306

== ENCOUNTER → 2023-07-04 | Outpatient (CLI) | payer OTHER ==
[~2023-07-04] MED LIST changes: +ASPI-1238 PO; +ATOR20TA66 PO; -CATHETER FLUSH 10 ML SYR IVP PRN; +CLOP75TA28 PO; +LOSA25TA41 PO; -REGADENOSON 0.4 MG/5 ML SYR IV ONE; +RIVA2.5T PO
[2023-07-04 08:35] LABS: TRIGLYCERIDES 76 MG/DL (<150); VLDL CHOLESTEROL 15 MG/DL (5-40)
[2023-07-04 08:40] LABS: CHOLESTEROL 192 MG/DL (< 200)
[2023-07-04 08:41] LABS: HDL CHOLESTEROL 54 MG/DL (40-60)
== END ==
LOC: LAB 07:49
PROVIDERS: ATTEND Family Medicine
DX: E78.5 Hyperlipidemia, unspecified (principal)
CPT/HCPCS: 36415; 80061